=== PATIENT | female | born 1950 | race Caucasian/White ===

== ENCOUNTER 2017-03-11 17:56 | Emergency (ER) | payer MEDICARE ==
--- NOTE | 2017-03-11 19:49 | UC ---
Dental HPI - HPI Summary HPI Summary: 66 yo female with a PMH of ascending aortic aneurysm repair 30 + years ago, CAD with [place], congenital aortic aneurysm at age 27 who presented today with dental pain reporting a broken tooth one year ago that in the last week has developed worsening tooth pain worse the last 24 hours. No noted swelling around tooth or gums. She denies fever or chills. No N/V/D or abdominal pain. no loss of appetite. She also reports 3 days ago she developed dysuria, increased urinary frequency suspected she had a UTI and has taken 3 doses of Cipro (she had left over at home) - her symptoms have now resolved. unknown dosage. - History of Current Complaint Chief Complaint: UCDentalProblem Stated Complaint: TOOTH Time Seen by Provider: 03/11/17 19:37 Hx Obtained From: Patient ?: No Onset/Duration: Gradual Onset, Lasting Weeks, Worse Since - 24 hours Severity: Severe Pain Intensity: 4 Pain Scale Used: 0-10 Numeric - currently Aggravating: Cold, Chewing Alleviating: OTC Meds - Allergies/Home Medications Allergies/Adverse Reactions: Allergies Allergy/AdvReac Type Severity Reaction Status Date / Time Iodinated Diagnostic Agents Allergy Unknown Verified 03/11/17 18:17 Reaction Details Peanut-containing Drug Allergy Unknown Verified 03/11/17 18:17 Products Reaction Details Home Medications: Home Medications Alendronate TAB (NF) [Fosamax TAB (NF)] 70 mg PO DAILY 03/11/17 [History Confirmed 03/11/17] Aspirin [Aspirin 81 MG TAB] 81 mg PO DAILY 03/11/17 [History Confirmed 03/11/17] Calcium Carbonate-Cholecalcife [Calcium 500+D 500-200 mg-Unit] 1 tab PO DAILY [History Confirmed 03/11/17] Latanoprost 0.005%* [Xalatan 0.005%*] 1 drop BOTH EYES DAILY 03/11/17 [History Confirmed 03/11/17] Pantoprazole TAB (NF) [Protonix TAB (NF)] 40 mg PO DAILY 03/11/17 [History Confirmed 03/11/17] Rosuvastatin Calcium 10 mg PO DAILY 03/11/17 [History Confirmed 03/11/17] predniSONE TAB* [Deltasone TAB*] 10.5 mg PO DAILY 03/11/17 [History Confirmed ] PMH/Surg Hx/FS Hx/Imm Hx Previously Healthy: No Endocrine History Of: Denies: Diabetes, Thyroid Disease Cardiovascular History Of: Reports: Cardiac Disorders - Double Bypass Surgery, Myocardial Infarction - with double bypass Denies: Hypertension, Congestive Heart Failure Respiratory History Of: Denies: COPD, Asthma GI/ History Of: Denies: Renal Disease Psychological History Of: Reports: Anxiety Cancer History Of: Denies: Breast Cancer - Surgical History Surgical History: Yes Surgery Procedure, Year, and Place: HYSTERECTOMY;. DOUBLE BYPASS - Family History Known Family History: Positive: Cardiac Disease - [place] (father), Hypertension - Social History Occupation: Retired Lives: With Family - Alcohol Use: None Substance Use Type: None Smoking Status (MU): Never Smoked Tobacco Have You Smoked in the Last Year: No - Immunization History Hx Tetanus, Diphtheria Vaccination: Yes Vaccination Up to Date: Yes Review of Systems Constitutional: Other Skin: Negative Eyes: Negative ENT: Dental Pain Respiratory: Negative Cardiovascular: Negative Gastrointestinal: Negative Genitourinary: Dysuria, Frequency Motor: Negative Neurovascular: Negative Musculoskeletal: Negative Neurological: Negative Psychological: Negative All Other Systems Reviewed And Are Negative: Yes Physical Exam Triage Information Reviewed: Yes Appearance: Well-Appearing, No Pain Distress, Well-Nourished Vital Signs: Initial Vital Signs Temp 98.5 F 03/11/17 18:11 Pulse 89 03/11/17 18:11 Resp 16 03/11/17 18:11 BP 145/88 03/11/17 18:11 Pulse Ox 100 03/11/17 18:11 Vital Signs Reviewed: Yes Eye Exam: Normal ENT: Positive: Pharynx normal, TMs normal Dental: Positive: Dental Fracture @ - tooth racture #29? (lower right) - no noted edema, erythema or drainage - no abscess noted. tender to palpation Neck: Positive: Supple, Nontender, No Lymphadenopathy Respiratory: Positive: Chest non-tender, Lungs clear, Normal breath sounds, No respiratory distress, No accessory muscle use Cardiovascular: Positive: RRR, No Murmur, Pulses Normal, Brisk Capillary Refill Abdomen Description: Positive: Nontender, Soft. Negative: CVA Tenderness (R), CVA Tenderness (L), Distended, Guarding, Peritoneal Signs Bowel Sounds: Positive: Present Musculoskeletal: Positive: Strength Intact, ROM Intact, No Edema Neurological: Positive: Alert Skin Exam: Normal Dental Complaint Course/Dx - Course Course Of Treatment: abx, pain management, oral surgeon referral - Differential Dx/Diagnosis Differential Diagnosis/Dx: Dental Abscess, Dental Caries, Fractured Tooth Provider Diagnoses: 1. Fractured tooth; concern for pulpitis and/or periapical abscess. 2. Possible UTI - negative urinalysis, recent course of Cipro Discharge - Discharge Plan Condition: Stable Disposition: HOME Prescriptions: Cephalexin CAP* [Keflex CAP*] 500 mg PO Q6H #28 cap Chlorhexidine MW 0.12% 473ML* [Peridex Mouth Wash 0.12%] 15 ml MT BID #1 btl HYDROcodone/ACETAMIN 5-325 MG* [Walnut 5-325 TAB*] 1 tab PO Q6H PRN #12 tab MDD 4 tabs PRN Reason: Pain Patient Education Materials: Dental Abscess (ED), Toothache (ED) Referrals: Jim Ritchie MD [Primary Care Provider] - (follow up if needed) Chema Vila MD [Doctor of Dental Medicine] - (please call Sunday to be seen this week. ) Additional Instructions: as discussed you have a Fractured tooth; concern for pulpitis and/or periapical abscess. You are being referred to an oral surgeon. Please start Keflex and pain management as needed. Use the Walnut only for severe pain otherwise continue acetaminophen (tylenol) BUT please be mindful that the Walnut also has added acetaminophen and your max daily dosage is 4000 mg/day. warm saline/salt rinses 3-4 x a day also you have been prescribed chlorhexadine mouth wash. Dr. Vila - [phone] If you have any return of urinary symptoms please see your primary care provider or return here for evaluation
[2017-03-11] MEDS ORDERED: HYDROcodone/ACETAMIN 5-325 MG* 1 TAB PO ONE (20:31)
[2017-03-11 20:50] VITALS: BP 117/74
== END 2017-03-11 20:50 | disposition home or self-care (01) ==
LOC: UCEAST 17:56
DX: K03.81 Cracked tooth (principal); R30.0 Dysuria; R35.0 Frequency of micturition; I25.2 Old myocardial infarction; Z95.1 Presence of aortocoronary bypass graft; F41.9 Anxiety disorder, unspecified
CPT/HCPCS: 81003; 99212; G0463

== ENCOUNTER 2017-06-02 01:28 | Observation (INO) | payer MEDICARE ==
[2017-06-02] MEDS ORDERED: Ondansetron INJ* 2 MG/ML VIAL IV ONE (02:18)
[2017-06-02] MEDS ORDERED: NS 0.9% 1000 ML* 1,000 ML IV ONE ×3 (02:18→08:15)
[2017-06-02 02:42] LABS: Hematocrit 41 % (35-47); Hemoglobin 13.6 g/dl (12.0-16.0); Mean Corpuscular HGB Conc 33 g/dl (31-36); Mean Corpuscular Hemoglobin 31 pg (27-31); Mean Corpuscular Volume 94 fL (80-97); Mean Platelet Volume 11 um3 (7.4-10.4); Red Blood Count 4.38 10^6/ul (4.0-5.4); Red Cell Distribution Width 13 % (10.5-15); White Blood Count 11.3 10^3/ul (3.5-10.8)
[2017-06-02 02:50] LABS: Albumin 3.9 g/dL (3.2-5.2); Calcium 8.8 mg/dL (8.6-10.3); EGFR African American 89.4 (>60); EGFR Non-African American 69.5 (>60); Globulin 2.7 g/dL (2-4); Potassium 3.4 mmol/L (3.5-5.0); Total Bilirubin 0.8 mg/dL (0.2-1.0); Total Protein 6.6 g/dL (6.4-8.9)
[2017-06-02] MEDS ORDERED: Metoclopramide IV* 5 MG/ML 2 ML VIAL IV ONE (04:18)
[2017-06-02] MEDS ORDERED: Pantoprazole IV* 40 MG IV ONE (06:23)
--- NOTE | 2017-06-02 07:11 | ED ---
Pattie Messer SooYoung, scribed for Hai Mayfield on 06/02/17 at 0208 . 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 Per family, the SOB may be due to pt's anxiety. Associated sx: n/v/d, mild abd pain described as cramping. Denies CP, fever. She ate chicken and pasta salad earlier today. PMHx: [place] - 39 years ago, CABG. Sees Dr. Clark. - History of Current Complaint Chief Complaint: EDShortnessOfBreath Time Seen by Provider: 06/02/17 01:44 Hx Obtained From: Patient, Family/Alarm Service Technician Onset/Duration: Gradual Onset, Lasting Hours, Still Present Timing: Constant Current Severity: Moderate - Allergy/Home Medications Allergies/Adverse Reactions: Allergies Allergy/AdvReac Type Severity Reaction Status Date / Time Peanut-containing Drug Allergy Unknown Verified 06/02/17 01:38 Products Reaction Details Iodinated Diagnostic Agents AdvReac Mild Unknown Verified 06/02/17 02:38 Reaction Details PMH/Surg Hx/FS Hx/Imm Hx Previously Healthy: No Endocrine/Hematology History: Denies: Hx Diabetes, Hx Thyroid Disease Cardiovascular History: Reports: Hx Coronary Artery Disease, Hx Myocardial Infarction - with double bypass Denies: Hx Congestive Heart Failure, Hx Hypertension Respiratory History: Denies: Hx Asthma, Hx Chronic Obstructive Pulmonary Disease (COPD) History: Denies: Hx Dialysis, Hx Renal Disease Musculoskeletal History: Denies: Hx Osteoporosis Psychiatric History: Reports: Hx Anxiety - Cancer History Hx Chemotherapy: No Hx Radiation Therapy: No - Surgical History Surgery Procedure, Year, and Place: HYSTERECTOMY;. DOUBLE BYPASS Infectious Disease History: No Infectious Disease History: Reports: Hx Shingles Denies: Hx Clostridium Difficile, Hx Hepatitis, Hx Human Immunodeficiency Virus (HIV), Hx of Known/Suspected MRSA, Hx Tuberculosis, Traveled Outside the [place] in Last 30 Days - Family History Known Family History: Positive: Cardiac Disease - [place] (father), Hypertension - Social History Occupation: Retired Lives: With Family Alcohol Use: None Hx Substance Use: No Substance Use Type: Reports: None Hx Tobacco Use: No Smoking Status (MU): Never Smoked Tobacco Have You Smoked in the Last Year: No Review of Systems Negative: Fever Negative: Chest Pain Positive: Shortness Of Breath Positive: Abdominal Pain, Vomiting, Nausea All Other Systems Reviewed And Are Negative: Yes Physical Exam Triage Information Reviewed: Yes Vital Signs On Initial Exam: Initial Vitals Temp Pulse Resp BP Pulse Ox 97.9 F 108 18 123/73 100 06/02/17 01:35 06/02/17 01:35 06/02/17 01:35 06/02/17 01:35 06/02/17 01:35 Vital Signs Reviewed: Yes Appearance: Positive: Well-Appearing, No Pain Distress Skin: Positive: Warm, Skin Color Reflects Adequate Perfusion, Dry Head/Face: Positive: Normal Head/Face Inspection Eyes: Positive: EOMI, MANDEEP ENT: Positive: Normal ENT inspection Neck: Positive: Supple, Nontender Respiratory/Lung Sounds: Positive: Clear to Auscultation, Breath Sounds Present Cardiovascular: Positive: RRR, Pulses are Symmetrical in both Upper and Lower Extremities Abdomen Description: Positive: Soft, Other: - tenderness to LLQ Bowel Sounds: Positive: Present Musculoskeletal: Positive: Normal, Strength/ROM Intact Neurological: Positive: Normal, Sensory/Motor Intact, Alert, Oriented to Person Place, Time Diagnostics - Vital Signs Vital Signs Temp Pulse Resp BP Pulse Ox 06/02/17 01:35 97.9 F 108 18 123/73 100 - Laboratory Result Diagrams: 06/02/17 02:00 06/02/17 02:00 Lab Statement: Any lab studies that have been ordered have been reviewed, and results considered in the medical decision making process. - Radiology CXR Radiology Interpretation Completed By: Radiologist - image pending, see [facility] for final report - CT ABD/PEL CT CT Interpretation: Positive (See Comments) - IMPRESSION: Diverticulosis with diverticulitis. 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 Per family, the SOB may be due to pt's anxiety. Associated sx: n/v/d, mild abd pain described as cramping. Denies CP, fever. She ate chicken and pasta salad earlier today. PMHx: [place] - 39 years ago, CABG. Sees Dr. Clark. Pt given fluids , Zofran in ED. Bloodwork and lab results are without significant abnormality except lactic acid is 2.2. EKG is sinus tachy with ST changes. ABD/PEL CT shows diverticulosis with diverticulitis. CXR pending, see [facility] for final report. Will SO to Dr. Cao at shift change, pending hospitalist consult. - Diagnoses Provider Diagnoses: Gastroenteritis, Dehydration Discharge - Discharge Plan Condition: Stable Disposition: OTHER Discharge Disposition Comment: SO to Dr. Cao at shift change, pending hospitalist consult Referrals: Jim Ritchie MD [Primary Care Provider] - The documentation as recorded by the Pattie berry SooYoung accurately reflects the service I personally performed and the decisions made by , Hai Mayfield.
--- NOTE | 2017-06-02 07:50 | RAD ---
HISTORY: Abdominal pain COMPARISONS: April 23, 2008 VIEWS:1: Single frontal portable view of the chest at 2:50 AM FINDINGS: LINES AND TUBES: None. CARDIOMEDIASTINAL SILHOUETTE: The cardiomediastinal silhouette is normal for portable technique. PLEURA: The costophrenic angles are sharp. No pleural abnormalities are noted. LUNG PARENCHYMA: The lungs are clear. ABDOMEN: The upper abdomen is clear. There is no subphrenic gas. BONES AND SOFT TISSUES: The patient is status post median sternotomy. Surgical clips are noted overlying the mediastinum. IMPRESSION: NO ACTIVE CARDIOPULMONARY DISEASE.
--- NOTE | 2017-06-02 07:53 | RAD ---
CLINICAL HISTORY: Diverticulitis COMPARISON: None TECHNIQUE: Multiple contiguous axial CT scans were obtained of the abdomen and pelvis, without intravenous contrast enhancement. Coronal and sagittal multiplanar reformations are submitted for review. Oral contrast was not administered. FINDINGS: The study is limited by the lack of intravenous contrast. This limits evaluation of the solid organs and vasculature. LUNG BASES: The lung bases are clear. LIVER: The liver is normal in shape, size, contour, and attenuation. BILE DUCTS: There is no intrahepatic or extrahepatic biliary dilatation. GALLBLADDER: The gallbladder is normal, without pericholecystic inflammatory change. PANCREAS: The pancreas is normal, without mass or ductal dilatation. SPLEEN: Normal in size and appearance. UPPER GI TRACT: Evaluation of the gastrointestinal tract is limited by incomplete gastric distention. The upper GI tract is unremarkable. SMALL BOWEL AND MESENTERY: The small bowel is normal in contour, course, and caliber. There is no obstruction or dilatation. COLON: The colon is normal in contour, course, caliber. There is no pericolonic inflammatory change. There is mild diverticulosis of the distal colon. ADRENALS: Normal bilaterally. KIDNEYS: Renal cysts are noted. There is no appreciable hydronephrosis or nephrolithiasis. BLADDER: The bladder is collapsed and is not well evaluated. PELVIC ORGANS: The uterus and adnexa are grossly normal for technique. AORTA: There is minimal atherosclerosis of the aorta, without aneurysmal dilatation. IVC: Unremarkable LYMPH NODES: There is no lymphadenopathy by size criteria. ABDOMINAL WALL: There is no evidence for abdominal wall hernia. BONES AND SOFT TISSUES: There are mild diffuse degenerative changes. OTHER: None IMPRESSION: MILD DIVERTICULOSIS OF THE DISTAL COLON WITHOUT PERICOLONIC INFLAMMATORY CHANGE TO SUGGEST ACUTE DIVERTICULITIS.
[2017-06-02] MEDS ORDERED: PROCHLORPERAZINE INJ 5 MG/ML 2 ML VIAL IV PRN (08:15)
[2017-06-02] MEDS ORDERED: Metoclopramide IV* 5 MG/ML 2 ML VIAL IV PRN (08:15)
[2017-06-02] MEDS ORDERED: PROCHLORPERAZINE INJ 5 MG/ML 2 ML VIAL ONE (08:19)
[2017-06-02] MEDS ORDERED: clonazePAM TAB(*) 0.5 MG PO PRN (08:33)
[2017-06-02] MEDS ORDERED: KCL 20 MEQ/100 ML IVPREMIX* 20 MEQ/100 ML BAG IV ONE (08:35)
[2017-06-02] MEDS ORDERED: Nadolol (NF) 20 MG TAB PO SCH (09:00)
[2017-06-02] MEDS ORDERED: Losartan TAB* 25 MG PO SCH (09:00)
--- NOTE | 2017-06-02 10:54 | HP ---
CC: Dr. Ritchie; Dr. Clark * HISTORY AND PHYSICAL: DATE OF ADMISSION: 06/02/17 PRIMARY CARE PROVIDER: Dr. Ritchie. BASTING CLEANER: Dr. Clark. CHIEF COMPLAINT: Nausea and vomiting. HISTORY OF PRESENT ILLNESS: Ms. Luna is a 67-year-old female who has a history of giant cell arteritis, on prednisone; hyperlipidemia; hypertension; coronary artery disease; and cerebrovascular disease, who presents to the emergency room with complaints of nausea and vomiting. The patient states that all week long, the patient herself and her were having diarrhea. She has specifically noted this after eating. She states last evening she made a pasta salad that had peppers in it. She states ordinarily when she eats peppers , she gets indigestion. This time, she developed severe nausea and vomiting. She states she vomited all night long and therefore could not sleep. She presents to the emergency room for evaluation of this. She continues to have severe nausea. She states she has filled 3 of the blue bags in the emergency room with vomit since being here. Overall, she just feels very unwell. She denies any abdominal pain or fevers. She did state last evening when she showed up she was shivering pretty significantly. PAST MEDICAL HISTORY: 1. Coronary artery disease, status post 2-vessel bypass at the age of 27. 2. Giant cell arteritis. 3. Hyperlipidemia. 4. Hypertension. 5. Peripheral vascular disease. 6. Cerebrovascular disease. PAST SURGICAL HISTORY: 1. Partial hysterectomy. 2. Tubal ligation. 3. Ascending aortic aneurysm repair with CABG at the age of 27. 4. Tonsillectomy. MEDICATIONS: 1. Prednisone 9 mg p.o. daily. 2. Crestor 10 mg p.o. Sunday, Sunday, Sunday. 3. Nadolol 20 mg p.o. daily. 4. Losartan 25 mg p.o. daily. 5. Xalatan 1 drop to both eyes q.h.s. 6. Folic acid 1 mg p.o. daily. 7. Clonazepam 0.5 mg p.o. daily p.r.n. anxiety. 8. Celexa 20 mg p.o. daily. 9. Calcium plus D 1 tab p.o. daily. 10. Aspirin 81 mg p.o. daily. ALLERGIES: PEANUTS and IODINE CONTRAST. FAMILY HISTORY: Mom is living. She is 92. Dad in his 50s of metastatic cancer that was felt to originate in the GI tract. SOCIAL HISTORY: The patient is a former smoker, but not actively smoking. She does not drink alcohol. 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 She is . She has 3 children. Her is her healthcare proxy. REVIEW OF SYSTEMS: The patient denies any fevers. She admits to shivering last evening. Her appetite has been poor since last evening, but prior to that had been fine. No chest pain. No shortness of breath. She admits to nausea, vomiting, and diarrhea as above. No abdominal pain. No hematochezia. No dysuria. No focal weakness. No sudden changes in vision. No dysphagia. No joint pains or muscle pains out of the ordinary. No rashes. No current anxiety or depression. PHYSICAL EXAMINATION GENERAL: The patient is a well-developed, middle-aged female, lying on the stretcher, appearing unwell but in no acute distress. VITAL SIGNS: Blood pressure 100/51, pulse 103, respirations 19, temp 97.9, and O2 sat 91% on room air. HEENT: Pupils are equal. They are round. They react to light. Extraocular muscles are intact. Oropharynx is clear. Oral mucosa is moist. There is no submandibular, cervical, or supraclavicular adenopathy. Thyroid is not enlarged. No thyroid nodules noted. PULMONARY: Lungs are clear to auscultation with very few fine right basilar crackles. CARDIAC: Normal S1, S2. Heart rate is tachycardic, but regular. There is no lower extremity edema. ABDOMEN: Bowel sounds present. Abdomen is soft, nontender, nondistended. MUSCULOSKELETAL: There is no cyanosis or clubbing of the digits. There is full active range of motion of all 4 extremities. SKIN: Warm and dry. There are no rashes. NEURO: Cranial nerves II through XII are grossly intact. Sensation is intact to light touch throughout. Strength is 5/5 and symmetric in both upper and lower extremities bilaterally. PSYCH: The patient is alert. She is oriented x3. Affect appears appropriate. LABORATORY DATA: WBC 11.3, hemoglobin 13.6, hematocrit 41, platelets 193. INR 0.89. Sodium 138, potassium 3.4, chloride 103, CO2 26, BUN 18, creatinine 0.82, glucose 115, lactic acid 2.8, calcium 8.8. Bilirubin 0.8, AST 15, ALT 14 , alk phos 40. Troponin 0. Albumin 3.9. Lipase 25. Chest x-ray, no active cardiopulmonary disease. Abdomen and pelvis CT, mild diverticulosis of the distal colon without pericolonic inflammatory change to suggest acute diverticulitis. ASSESSMENT AND PLAN: Ms. Luna is a 67-year-old female with a complicated past medical history significant for coronary artery disease, ascending aortic aneurysm repair at the age of 27, giant cell arteritis, hyperlipidemia, and hypertension, who presents to the emergency room with complaints of nausea and vomiting. 1. Probable viral gastroenteritis. At this point, the patient and her have both been ill with diarrheal illness over the last week. The patient now started vomiting. I suspect this represents a viral gastroenteritis. Her while blood cell count is mildly elevated at this point. She will receive aggressive IV fluid hydration as well as numerous antiemetics to try to control her nausea. She will be on a clear liquid diet. I am going to hold off on any antibiotics at this point, as there are no clear signs that this is bacterial in nature. Her lactic acid is mildly elevated at 2.8. A followup lactic acid will be obtained now. If still elevated, will be followed to let normalize this. The patient is also tachycardic which I suspect goes along with her being volume depleted. 2. Hypertension. The patient's blood pressure is on the soft side at this point. I will continue her home losartan and nadolol; however, we will put hold parameters. 3. Coronary artery disease. The patient will be maintained on her usual dose of aspirin and statin. 4. Giant cell arteritis. The patient will continue on 9 mg of prednisone daily. She has been on prednisone long-term, and if her blood pressure fails to improve, we may need to consider stress dose steroids. 5. DVT prophylaxis: According to the Adult Thrombosis Prophylaxis Risk Factor Assessment Guide, the patient has a total risk factor score of 2, making her moderate risk. She will be placed on heparin 5000 units subcutaneous q.12 hours. 6. Code status is full. TIME SPENT: 60 minutes was spent admitting this patient. [id number]/[facility] #: [id number] [place]
[2017-06-02] MEDS: NS 0.9% 1000 ML* 1,000 ML IV SCH ×2 (11:00→20:56)
[2017-06-02] MEDS: Heparin VIAL(*) 5000 UNITS/ML VIAL (FIVE THOUSAND) SUBCUT SCH ×2 (11:20→21:32)
[2017-06-02] MEDS ORDERED: LORazepam INJ* 2 MG/ML 1 ML VIAL IV PUSH ONE (11:54)
[2017-06-02] MEDS ORDERED: LORazepam INJ* 2 MG/ML 1 ML VIAL IV PUSH PRN (14:21)
[2017-06-02] MEDS ORDERED: Morphine INJ* 2 MG/ML 1 ML SYRINGE IV PRN (14:21)
[2017-06-02] MEDS: Citalopram TAB* 20 MG PO SCH (14:22)
[2017-06-02] MEDS: Losartan TAB* 25 MG PO SCH (14:22)
[2017-06-02] MEDS: Aspirin EC Low Dose* 81 MG TAB.EC PO SCH (14:22)
[2017-06-02] MEDS: Calcium/Vitamin D TAB 250/125* TAB PO SCH (14:22)
[2017-06-02] MEDS: Folic Acid TAB* 1 MG PO SCH (14:22)
[2017-06-02] MEDS: Nadolol TAB* 40 MG PO SCH (14:32)
[2017-06-02 14:34] LABS: Urine Bacteria 1+ (Absent); Urine Bilirubin Negative (Negative); Urine Glucose Negative (Negative); Urine Nitrite Negative (Negative)
[2017-06-02] MEDS: predniSONE TAB* 1 MG PO SCH (15:18)
[2017-06-02] MEDS: predniSONE TAB* 5 MG PO SCH (15:18)
[2017-06-02] MEDS: Acetaminophen TAB* 325 MG PO PRN (19:57)
[2017-06-02] MEDS: Ondansetron INJ* 2 MG/ML VIAL IV PRN (20:05)
[2017-06-02] MEDS ORDERED: Latanoprost 0.005%* 2.5 ml BTL BOTH EYES SCH (21:00)
[2017-06-03] MEDS: Acetaminophen TAB* 325 MG PO PRN ×2 (00:25→07:48)
[2017-06-03] MEDS: NS 0.9% 1000 ML* 1,000 ML IV SCH (04:55)
[2017-06-03 06:01] LABS: Hematocrit 37 % (35-47); Hemoglobin 12.1 g/dl (12.0-16.0); Mean Corpuscular HGB Conc 33 g/dl (31-36); Mean Corpuscular Hemoglobin 31 pg (27-31); Mean Corpuscular Volume 95 fL (80-97); Mean Platelet Volume 10 um3 (7.4-10.4); Red Blood Count 3.85 10^6/ul (4.0-5.4); Red Cell Distribution Width 13 % (10.5-15); White Blood Count 4.3 10^3/ul (3.5-10.8)
[2017-06-03 06:14] LABS: Calcium 7.7 mg/dL (8.6-10.3); EGFR African American 144.8 (>60); EGFR Non-African American 112.6 (>60); Potassium 3.3 mmol/L (3.5-5.0)
[2017-06-03] MEDS: Ondansetron INJ* 2 MG/ML VIAL IV PRN (07:44)
[2017-06-03] MEDS: Heparin VIAL(*) 5000 UNITS/ML VIAL (FIVE THOUSAND) SUBCUT SCH (07:46)
[2017-06-03] MEDS: Aspirin EC Low Dose* 81 MG TAB.EC PO SCH (07:48)
[2017-06-03] MEDS: predniSONE TAB* 1 MG PO SCH (07:48)
[2017-06-03] MEDS: Losartan TAB* 25 MG PO SCH (07:48)
[2017-06-03] MEDS: Nadolol TAB* 40 MG PO SCH (07:48)
[2017-06-03] MEDS: Calcium/Vitamin D TAB 250/125* TAB PO SCH (07:48)
[2017-06-03] MEDS: predniSONE TAB* 5 MG PO SCH (07:48)
[2017-06-03] MEDS: Citalopram TAB* 20 MG PO SCH (07:48)
[2017-06-03] MEDS: Folic Acid TAB* 1 MG PO SCH (07:48)
[2017-06-03 11:36] VITALS: BP 113/49
--- NOTE | 2017-06-03 11:49 | PN ---
Subjective Date of Service: 06/03/17 Interval History: Ms. Luna states that she is feeling much better today. Her nausea and vomiting have resolved and she is tolerating oral intake well. She has some miminal diarrhea. Objective Active Medications: Acetaminophen (Tylenol Tab*) 650 mg PO Q4H PRN Aspirin (Aspirin Ec Low Dose*) 81 mg PO DAILY [facility] Atorvastatin Calcium (Lipitor*) 20 mg PO MOWEFR [facility] Calcium/Vitamin D (Oscal D Tab 250/125*) 1 tab PO DAILY [facility] Citalopram Hydrobromide (Celexa Tab*) 20 mg PO DAILY [facility] Clonazepam (Klonopin Tab(*)) 0.5 mg PO DAILY PRN Folic Acid (Folvite Tab*) 1 mg PO DAILY [facility] Heparin Sodium (Porcine) (Heparin Vial(*)) 5,000 units SUBCUT Q12HR [facility] Sodium Chloride (Ns 0.9% 1000 Ml*) 1,000 mls @ 125 mls/hr IV PER RATE [facility] Latanoprost (Xalatan 0.005%*) 1 drop BOTH EYES BEDTIME [facility] Lorazepam (Ativan Inj*) 0.5 mg IV PUSH Q6H PRN Losartan Potassium (Cozaar Tab*) 25 mg PO DAILY [facility] Metoclopramide HCl (Reglan Iv*) 10 mg IV Q6H PRN Morphine Sulfate (Morphine Inj (Syringe)*) 2 mg IV Q4H PRN Nadolol (Corgard Tab*) 20 mg PO DAILY [facility] Ondansetron HCl (Zofran Inj*) 4 mg IV Q6H PRN Prednisone (Deltasone Tab*) 4 mg PO DAILY [facility] Prednisone (Deltasone Tab*) 5 mg PO DAILY [facility] Prochlorperazine Edisylate (Compazine Inj*) 10 mg IV Q6H PRN Vital Signs 06/02/17 06/02/17 06/02/17 12:24 13:24 15:27 Temperature 97.9 F Pulse Rate 108 Respiratory 28 28 16 Rate Blood Pressure 115/52 (mmHg) O2 Sat by Pulse Oximetry 06/03/17 06/03/17 06/03/17 00:17 00:25 03:49 Temperature 98.0 F 98.0 F Pulse Rate 87 83 Respiratory 16 16 Rate Blood Pressure 97/46 106/62 101/57 (mmHg) O2 Sat by Pulse 96 96 Oximetry 06/03/17 06/03/17 06/03/17 07:37 08:00 11:17 Temperature 98.0 F 97.8 F Pulse Rate 86 82 Respiratory 16 16 20 Rate Blood Pressure 112/77 113/49 (mmHg) O2 Sat by Pulse 96 98 Oximetry Oxygen Devices in Use Now: None Appearance: Female lying in bed in NAD Eyes: No Scleral Icterus Ears/Nose/Mouth/Throat: Mucous Membranes Moist Neck: NL Appearance and Movements; NL JVP Respiratory: Symmetrical Chest Expansion and Respiratory Effort, Clear to Auscultation Cardiovascular: NL Sounds; No Murmurs; No JVD, No Edema Abdominal: NL Sounds; No Tenderness; No Distention Lymphatic: No Cervical Adenopathy Extremities: No Edema Skin: No Rash or Ulcers Neurological: Alert and Oriented x 3, NL Muscle Strength and Tone Nutrition: Taking PO's Result Diagrams: 06/03/17 05:52 06/03/17 05:52 Microbiology and Other Data: Microbiology 06/02/17 14:20 Stool Gross Appearance - Final Stool C. difficile DNA Amplification - Final 027 Presumptive NEGATIVE Toxigenic C.diff NEGATIVE Assess/Plan/Problems-Billing Assessment: Ms. Luna is a 67 yo female with a PMH of CAD s/p CABG at age 27, giant cell arteritis who was admitted on 06/02/17 with acute viral gastroenteritis. - Patient Problems (1) Gastroenteritis Comment: - Resolved. - Afebrile, no leukocytosis. - Suspect viral process. (2) Hypertension Comment: - SBP well controlled. - Continue losartan and nadolol. (3) Hyperlipemia Comment: - Continue atorvastatin. (4) Depression Comment: - Continue celexa. (5) Giant cell arteritis Comment: - Continue prednisone. (6) DVT prophylaxis Comment: - Heparin SQ. (7) Full code status Status and Disposition: OBV. Discharge to home.
--- NOTE | 2017-06-04 02:37 | DS ---
CC: Dr. Ritchie * DISCHARGE SUMMARY: DATE OF ADMISSION: 06/02/17 DATE OF DISCHARGE: 06/03/17 PRIMARY CARE PHYSICIAN: Dr. Ritchie. ATTENDING PHYSICIAN: Cuate Goyal MD *(dictation provided by Derian Martinez NP ) PRIMARY DIAGNOSIS: Viral gastroenteritis. SECONDARY DIAGNOSES: 1. History of ascending aortic aneurysm with repair of that with also requiring a CABG at age 27. 2. Giant cell arteritis, currently on prednisone therapy. 3. Hyperlipidemia. 4. Hypertension. 5. Peripheral vascular disease. PAST SURGICAL HISTORY: 1. Partial hysterectomy. 2. Tubal ligation. 3. Ascending aortic aneurysm repair with CABG at the age of 27. 4. Tonsillectomy. MEDICATIONS: At the time of discharge are, no medication changes: 1. Prednisone 9 mg p.o. daily. 2. Crestor 10 mg p.o. Sunday, Sunday, Sunday. 3. Nadolol 20 mg p.o. daily. 4. Losartan 25 mg p.o. daily. 5. Xalatan 1 drop to both eyes q.h.s. 6. Folic acid 1 mg p.o. daily. 7. Clonazepam 0.5 mg p.o. daily p.r.n. anxiety. 8. Celexa 20 mg p.o. daily. 9. Calcium plus D 1 tab p.o. daily. 10. Aspirin 81 mg p.o. daily. HOSPITAL COURSE: Ms. Luna is a 67-year-old female with a past medical history of abdominal aortic aneurysm with repair as well as CABG at age 27 and recent diagnosis in the past year of giant cell arteritis, now on prednisone therapy, who presented to the hospital on 06/02/17 with concern for nausea, vomiting, and diarrhea. Please see dictated H and P from Dr. Shelton for complete details. In brief, the patient had essentially normal labs except for a mildly elevated lactic acid at 2.8. She had a CT of the abdomen and pelvis, which showed diverticulosis only without any evidence of inflammation. She was afebrile. She was not tachycardic. Blood pressure was stable. Ms. Luna was observed in the hospital overnight. This morning, she is feeling much better. She has had no nausea. No vomiting. She has had a small amount of diarrhea, but feels that her symptoms are essentially resolved. She has been tolerating oral intake well. Ms. Luna is medically stable for discharge to home to followup with Dr. Ritchie. DISPOSITION: To home. DIET: Low salt. ACTIVITY: As tolerated. FOLLOWUP PLANS: Please follow up with Dr. Ritchie per routine in the next 1 to 2 weeks after this hospitalization. TIME SPENT: Approximately 60 minutes were spent in the discharge of this patient, more than half the time spent with the patient at the bedside reviewing the events leading up to this hospitalization, performing the physical examination, and reviewing the plan of care. DERIAN MARTINEZ NP [id number]/CPS #: [id number] [place]
[2017-06-04] MEDS ORDERED: Atorvastatin* 20 MG TAB PO SCH (08:33)
== END 2017-06-03 15:00 | disposition home or self-care (01) ==
LOC: ED 01:28 → MED 08:15
PROVIDERS: ADMIT Hospitalist; ATTEND Internal Medicine
DX: A08.4 Viral intestinal infection, unspecified (principal); M31.6 Other giant cell arteritis; I10 Essential (primary) hypertension; E78.5 Hyperlipidemia, unspecified; I73.9 Peripheral vascular disease, unspecified; Z79.82 Long term (current) use of aspirin; Z91.041 Radiographic dye allergy status; Z91.010 Allergy to peanuts; I25.10 Atherosclerotic heart disease of native coronary artery without angina pectoris; Z95.1 Presence of aortocoronary bypass graft
CPT/HCPCS: 36415; 71010; 74176; 80048; 80053; 81003; 81015; 83605; 83690; 84484; 85025; 85027; 85610; 85730; 87077; 87086; 87186; 87493; 93005; 96374; 96375; 99284; A9270-GY; G0378; J0780; J1644; J2060; J2405; J2765; J3480; J7512

== ENCOUNTER 2019-04-17 22:01 | Observation (INO) | payer MEDICARE ==
[2019-04-17 22:31] LABS: ABS Basophils 0.1 10^3/ul (0-0.2); ABS Eosinophils 0.1 10^3/ul (0-0.6); ABS Lymphocytes 1.7 10^3/ul (1.0-4.8); ABS Neutrophils 8.9 10^3/ul (1.5-7.7); Eosinophil % 1.1 %; Hematocrit 40 % (35-47); Hemoglobin 13.3 g/dL (12.0-16.0); Lymphocyte % 14.5 %; Mean Corpuscular HGB Conc 34 g/dL (31-36); Mean Corpuscular Hemoglobin 32 pg (27-31); Mean Corpuscular Volume 94 fL (80-97); Mean Platelet Volume 10.5 fL (7.4-10.4); Platelet Count 241 10^3/uL (150-450); Red Blood Count 4.23 10^6 /uL (3.70-4.87); Red Cell Distribution Width 13 % (10-15); White Blood Count 11.8 10^3/uL (3.5-10.8)
[2019-04-17 22:36] LABS: INR 0.98 (0.82-1.09)
[2019-04-17 22:44] LABS: Albumin 4.1 g/dL (3.2-5.2); Albumin/Globulin Ratio 1.4 (1-3); BUN/Creatinine Ratio 17.9 (8-20); Calcium 9.4 mg/dL (8.6-10.3); EGFR African American 105.6 (>60); EGFR Non-African American 87.3 (>60); Globulin 2.9 g/dL (2-4); Potassium 3.8 mmol/L (3.5-5.0); Total Bilirubin 0.4 mg/dL (0.2-1.0)
--- NOTE | 2019-04-17 23:19 | ED ---
Palpitations / Dysrhythmia - HPI Summary HPI Summary: A 69 y/o female presents to [facility] with a chief complaint of an elevated heart rate since 19:00 04/17/19. The patient also c/o SOB and nausea. She denies any swelling or pain in legs, fevers, chills or abdominal pain. The patient states that she had a heart attack at 27y/o and had a double bypass surgery. She called Dr. Piper today and he told her to get an EKG. - History of Current Complaint Chief Complaint: EDDysrhythmPalp Time Seen by Provider: 04/17/19 23:04 Hx Obtained From: Patient Onset/Duration: Sudden Onset, Lasting Hours, Still Present Timing: Constant Severity Initially: Mild Severity Currently: None Character: Fast Aggravating: Nothing Alleviating: Nothing Associated Signs & Symptoms: Shortness of Breath, Nausea - Allergy/Home Medications Allergies/Adverse Reactions: Allergies Allergy/AdvReac Type Severity Reaction Status Date / Time Iodinated Contrast- Oral and Allergy Unknown Verified 04/17/19 22:16 IV Dye Reaction Details peanut Allergy Unknown Verified 04/17/19 22:15 Reaction Details PMH/Surg Hx/FS Hx/Imm Hx Endocrine/Hematology History: Reports: Other Endocrine/Hematological Disorders - HLD Denies: Hx Diabetes, Hx Thyroid Disease Cardiovascular History: Reports: Hx Coronary Artery Disease, Hx Hypertension, Hx Myocardial Infarction - with double bypass, Hx Peripheral Vascular Disease, Other Cardiovascular Problems/Disorders - CAD Denies: Hx Congestive Heart Failure, Hx Pacemaker/ICD Respiratory History: Denies: Hx Asthma, Hx Chronic Obstructive Pulmonary Disease (COPD) History: Denies: Hx Dialysis, Hx Renal Disease Musculoskeletal History: Denies: Hx Osteoporosis Sensory History: Reports: Hx Contacts or Glasses Denies: Hx Hearing Aid Opthamlomology History: Reports: Hx Contacts or Glasses Psychiatric History: Reports: Hx Anxiety Denies: Hx Panic Disorder - Cancer History Hx Chemotherapy: No Hx Radiation Therapy: No - Surgical History Surgery Procedure, Year, and Place: HYSTERECTOMY;. DOUBLE BYPASS-OK PER DR ARAMBULA. TONSILS Infectious Disease History: No Infectious Disease History: Reports: Hx Shingles Denies: Hx Clostridium Difficile, Hx Hepatitis, Hx Human Immunodeficiency Virus (HIV), Hx of Known/Suspected MRSA, Hx Tuberculosis, Traveled Outside the [place] in Last 30 Days - Family History Known Family History: Positive: Cardiac Disease - [place] (father), Hypertension - Social History Alcohol Use: None Hx Substance Use: No Substance Use Type: Reports: None Hx Tobacco Use: No Smoking Status (MU): Never Smoked Tobacco Have You Smoked in the Last Year: No Review of Systems Negative: Fever, Chills Positive: Shortness Of Breath Positive: Nausea. Negative: Vomiting Negative: Myalgia, Edema All Other Systems Reviewed And Are Negative: Yes Physical Exam - Summary Physical Exam Summary: Appearance: anxious appearing female in no apparent distress, vital signs show that the patient is tachycardic with frequent PVCs on monitor Skin: Warm, dry, no obvious rash Eyes: sclera anicteric, no conjunctival pallor ENT: mucous membranes moist, pharynx appears normal Neck: Supple, nontender Respiratory: Clear to auscultation, no signs of respiratory distress Cardiovascular: Normal S1, S2. No murmurs. Normal distal pulses in tibial and radial bilaterally. Abdomen: Soft, nontender, normal active bowel sounds present Musculoskeletal: Normal, Strength/ROM Intact, no leg swelling Neurological: A&Ox3, awake and alert, mentation is normal, speech is fluent and appropriate Psychiatric: affect is normal, does not appear anxious or depressed Triage Information Reviewed: Yes Vital Signs On Initial Exam: Initial Vitals Temp Pulse Resp BP Pulse Ox 98.3 F 105 20 148/86 97 04/17/19 22:09 04/17/19 22:09 04/17/19 22:09 04/17/19 22:09 04/17/19 22:09 Vital Signs Reviewed: Yes Diagnostics - Vital Signs Vital Signs Temp Pulse Resp BP Pulse Ox 04/17/19 22:09 98.3 F 105 20 148/86 97 - Laboratory Lab Results: Lab Results 04/17/19 04/17/19 04/17/19 Range/Units 22:20 22:20 22:20 WBC 11.8 H (3.5-10.8) 10^3/uL RBC 4.23 (3.70-4.87) 10^6 /uL Hgb 13.3 (12.0-16.0) g/dL Hct 40 (35-47) % MCV 94 (80-97) fL MCH 32 H (27-31) pg MCHC 34 (31-36) g/dL RDW 13 (10-15) % Plt Count 241 (150-450) 10^3/uL MPV 10.5 H (7.4-10.4) fL Neut % (Auto) 75.4 % Lymph % (Auto) 14.5 % [place] % (Auto) 8.1 % Eos % (Auto) 1.1 % Baso % (Auto) 0.9 % Absolute Neuts (auto) 8.9 H (1.5-7.7) 10^3/ul Absolute Lymphs (auto) 1.7 (1.0-4.8) 10^3/ul Absolute Monos (auto) 1.0 H (0-0.8) 10^3/ul Absolute Eos (auto) 0.1 (0-0.6) 10^3/ul Absolute Basos (auto) 0.1 (0-0.2) 10^3/ul Absolute Nucleated RBC 0.0 10^3/ul Nucleated RBC % 0.0 INR (Anticoag Therapy) 0.98 (0.82-1.09) Sodium 137 (135-145) mmol/L Potassium 3.8 (3.5-5.0) mmol/L Chloride 104 (101-111) mmol/L Carbon Dioxide 25 (22-32) mmol/L Anion Gap 8 (2-11) mmol/L BUN 12 (6-24) mg/dL Creatinine 0.67 (0.51-0.95) mg/dL Est GFR ( Amer) 105.6 (>60) Est GFR (Non-Af Amer) 87.3 (>60) BUN/Creatinine Ratio 17.9 (8-20) Glucose 136 H (70-100) mg/dL Calcium 9.4 (8.6-10.3) mg/dL Total Bilirubin 0.40 (0.2-1.0) mg/dL AST 25 (13-39) U/L ALT 21 (7-52) U/L Alkaline Phosphatase 76 (34-104) U/L Troponin I 0.00 (<0.04) ng/mL Total Protein 7.0 (6.4-8.9) g/dL Albumin 4.1 (3.2-5.2) g/dL Globulin 2.9 (2-4) g/dL Albumin/Globulin Ratio 1.4 (1-3) Result Diagrams: 04/19/19 05:46 04/19/19 05:46 Lab Statement: Any lab studies that have been ordered have been reviewed, and results considered in the medical decision making process. - Radiology CXR Radiology Interpretation Completed By: ED Physician Summary of Radiographic Findings: No acute process. Pending official imaging report. - EKG 22:06 Cardiac Rate: Tachycardia - 111bpm EKG Rhythm: Sinus Tachycardia Summary of EKG Findings: EKG at 22:06 showed Sinus tachycardia 111bpm, paired ventricular premature complexes. Course/Dx - Course Course Of Treatment: A 69 y/o female presents to [facility] with a chief complaint of an elevated heart rate since 19:00 04/17/19. The patient also c/o SOB and nausea. The physical exam revealed that the patient is an anxious appearing female in no apparent distress, vital signs show that the patient is tachycardic with frequent PVCs on monitor, no leg swelling. EKG at 22:06 showed Sinus tachycardia 111bpm, paired ventricular premature complexes. CXR showed no acute process. In the ED course the patient was given Zofran IV and Compazine IV. Bloodwork and chemistries obtained. Second troponin at 00:59 was initially reported as 0.13, but the lab reports that there was an error and that it was really 0.01. Discussed case with Dr. Piper, irrigation worker, who recommended admission and starting her on Heparin and beta blockers to get her HR down. Discussed case with Dr. West, hospitalist, who accepted the patient for admission. The patient is agreeable with this plan. - Diagnoses Provider Diagnoses: Unstable angina, Non-STEMI (non-ST elevated myocardial infarction) - Physician Notifications Discussed Care Of Patient With: Krishna Piper Time Discussed With Above Provider: 01:35 Instructed by Provider To: Other - recommended admission and starting her on Heparin and beta blockers to get her HR down Discharge - Sign-Out/Discharge Documenting (check all that apply): Patient Departure - admit Patient Received Moderate/Deep Sedation with Procedure: No - Discharge Plan Condition: Improved Disposition: ADMITTED TO [facility] - Billing Disposition and Condition Condition: IMPROVED Disposition: Admitted to [facility] - Attestation Statements Document Initiated by Scribe: Yes Documenting Scribe: Samson Lorenzana Provider For Whom Lisaibkristin is Documenting (Include Credential): MD Lisa Spainibe Attestation: Samson Messer scribed for Fab Link MD on 04/21/19 at 0547. Scribe Documentation Reviewed: Yes Provider Attestation: The documentation as recorded by the lisaibe, Samson Lorenzana accurately reflects the service I personally performed and the decisions made by me, Fab Link MD Status of Scribe Document: Viewed Consult Consult: At 01:[address] West, hospitalist, who accepted the patient for admission.
[2019-04-17] MEDS ORDERED: Ondansetron INJ* 2 MG/ML VIAL IV ONE (23:43)
[2019-04-18] MEDS ORDERED: PROCHLORPERAZINE INJ 5 MG/ML 2 ML VIAL IV ONE (01:33)
[2019-04-18] MEDS ORDERED: Metoprolol Tartrate TAB* 25 MG PO ONE (01:36)
[2019-04-18] MEDS ORDERED: Metoprolol Tartrate IV* 1 MG/ML 5 ML VIAL IV ONE (01:37)
[2019-04-18] MEDS ORDERED: Aspirin 81 mg CHEW TAB* 81 MG TAB.CHEW PO ONE (01:38)
[2019-04-18] MEDS ORDERED: Heparin DRIP 25,000 UNITS(*) 25,000 UNITS/500 ML BAG IV SCH (01:45)
[2019-04-18] MEDS ORDERED: Heparin VIAL(*) 5000 UNITS/ML VIAL (FIVE THOUSAND) IV SCH (02:00)
[2019-04-18 02:08] LABS: ABS Basophils 0.1 10^3/ul (0-0.2); ABS Eosinophils 0.1 10^3/ul (0-0.6); ABS Monocytes 0.8 10^3/ul (0-0.8); ABS Neutrophils 11.8 10^3/ul (1.5-7.7); Eosinophil % 0.4 %; Hematocrit 39 % (35-47); Hemoglobin 12.9 g/dL (12.0-16.0); Mean Corpuscular HGB Conc 33 g/dL (31-36); Mean Corpuscular Hemoglobin 32 pg (27-31); Mean Corpuscular Volume 94 fL (80-97); Mean Platelet Volume 10.7 fL (7.4-10.4); Platelet Count 215 10^3/uL (150-450); Red Cell Distribution Width 13 % (10-15); White Blood Count 13.7 10^3/uL (3.5-10.8)
--- NOTE | 2019-04-18 02:19 | HP ---
History of Present Illness - History of Present Illness Reason for Visit: Palpitations History of Present Illness: 69yoF PMHx of CAD s/p 2 vessel CABG(Age 27), Asending Aortic aneurysm s/p repair here complaining of an elevated heart rate 109-115 since 7PM last night. The patient also c/o SOB and nausea. She denies any swelling or pain in legs, fevers, chills or abdominal pain. She called Dr. Price but Dr. Piper answered and told her to get to ER. - Past Medical History Cardiac: CAD - s/p 2 vessel CABG., HTN, Hyperlipidemia, Other - Asending Aortic Aneurysm repaired with CABG at age 27. 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 Review of Systems - Measurements Intake and Output: Intake and Output Last 24 Hours 04/15/19 04/16/19 04/17/19 04/18/19 06:59 06:59 06:59 06:59 Intake Total 8 Balance 8 Weight 152 lb Intake: IV Fluids 4 IVPB 4 - Review of Systems Constitutional Symptoms: Negative: Fever Pulmonary: Positive: Shortness of Breath Cardiology: Positive: Shortness of Breath, Palpitations Negative: Chest Pain, Syncope Gastroenterology: Positive: Nausea Negative: Vomiting Genital - Urinary: Negative: Dysuria, Polyuria Musculoskeletal: Negative: Joint Pain, Low Back Pain Objective Active Medications: Heparin Sodium (Porcine) (Heparin Vial(*)) 0 units IV .PER PROTOCOL [facility] Heparin Sodium/Dextrose (Heparin Drip 25,000 Units(*)) 25,000 units in 500 mls @ 0 mls/hr IV PER RATE [facility]; Protocol Vital Signs - 8 hr 04/17/19 04/17/19 04/17/19 22:09 22:14 22:28 Temperature 98.3 F Pulse Rate 105 107 Respiratory 20 15 24 Rate Blood Pressure 148/86 138/94 (mmHg) O2 Sat by Pulse 97 97 Oximetry 04/17/19 04/17/19 04/17/19 22:50 23:01 23:14 Temperature Pulse Rate 109 108 104 Respiratory 22 21 23 Rate Blood Pressure 149/115 134/90 151/82 (mmHg) O2 Sat by Pulse 96 96 97 Oximetry 04/17/19 04/17/19 04/18/19 23:44 23:53 00:00 Temperature Pulse Rate 101 99 99 Respiratory 22 17 21 Rate Blood Pressure 134/85 (mmHg) O2 Sat by Pulse 97 98 92 Oximetry 04/18/19 04/18/19 04/18/19 00:21 00:44 01:00 Temperature Pulse Rate 103 103 102 Respiratory 18 18 17 Rate Blood Pressure 137/72 133/81 (mmHg) O2 Sat by Pulse 96 95 96 Oximetry Oxygen Devices in Use Now: None Eyes: No Scleral Icterus, PERRLA Ears/Nose/Mouth/Throat: NL Teeth, Lips, Gums, Clear Oropharnyx, Mucous Membranes Moist Neck: NL Appearance and Movements; NL JVP Respiratory: Clear to Auscultation Cardiovascular: NL Sounds; No Murmurs; No JVD, RRR Abdominal: NL Sounds; No Tenderness; No Distention Extremities: No Edema Skin: No Rash or Ulcers Neurological: Alert and Oriented x 3, NL Sensation, NL Muscle Strength and Tone Result Diagrams: 04/18/19 02:00 04/18/19 02:00 Additional Lab and Data: Lab Results 04/17/19 04/17/19 04/17/19 Range/Units 22:20 22:20 22:20 WBC 11.8 H (3.5-10.8) 10^3/uL RBC 4.23 (3.70-4.87) 10^6 /uL Hgb 13.3 (12.0-16.0) g/dL Hct 40 (35-47) % MCV 94 (80-97) fL MCH 32 H (27-31) pg MCHC 34 (31-36) g/dL RDW 13 (10-15) % Plt Count 241 (150-450) 10^3/uL MPV 10.5 H (7.4-10.4) fL Neut % (Auto) 75.4 % Lymph % (Auto) 14.5 % [place] % (Auto) 8.1 % Eos % (Auto) 1.1 % Baso % (Auto) 0.9 % Absolute Neuts (auto) 8.9 H (1.5-7.7) 10^3/ul Absolute Lymphs (auto) 1.7 (1.0-4.8) 10^3/ul Absolute Monos (auto) 1.0 H (0-0.8) 10^3/ul Absolute Eos (auto) 0.1 (0-0.6) 10^3/ul Absolute Basos (auto) 0.1 (0-0.2) 10^3/ul Absolute Nucleated RBC 0.0 10^3/ul Nucleated RBC % 0.0 INR (Anticoag Therapy) 0.98 (0.82-1.09) Sodium 137 (135-145) mmol/L Potassium 3.8 (3.5-5.0) mmol/L Chloride 104 (101-111) mmol/L Carbon Dioxide 25 (22-32) mmol/L Anion Gap 8 (2-11) mmol/L BUN 12 (6-24) mg/dL Creatinine 0.67 (0.51-0.95) mg/dL Est GFR ( Amer) 105.6 (>60) Est GFR (Non-Af Amer) 87.3 (>60) BUN/Creatinine Ratio 17.9 (8-20) Glucose 136 H (70-100) mg/dL Calcium 9.4 (8.6-10.3) mg/dL Total Bilirubin 0.40 (0.2-1.0) mg/dL AST 25 (13-39) U/L ALT 21 (7-52) U/L Alkaline Phosphatase 76 (34-104) U/L Troponin I 0.00 (<0.04) ng/mL Total Protein 7.0 (6.4-8.9) g/dL Albumin 4.1 (3.2-5.2) g/dL Globulin 2.9 (2-4) g/dL Albumin/Globulin Ratio 1.4 (1-3) EKG Data: Sinus tachycardia with few PVC. Assess/Plan/Problems-Billing Assessment: 69yoF PMHx of CAD s/p 2 vessel CABG(Age 27), Asending Aortic aneurysm s/p repair admitted for palpitations. - Patient Problems (1) Palpitations Current Visit: Yes Status: Acute Code(s): R00.2 - PALPITATIONS SNOMED Code (s): 93891145 Comment: Given her cardiac history will get serial cardiac enzymes, ECHO and consider Cardiology input. (2) CAD (coronary artery disease) Current Visit: No Status: Acute Code(s): I25.10 - ATHSCL HEART DISEASE OF [place] CORONARY ARTERY W/O ANG PCTRS SNOMED Code(s): 87987136 Comment: Continue home meds. (3) Depression Current Visit: No Status: Acute Code(s): F32.9 - MAJOR DEPRESSIVE DISORDER, SINGLE EPISODE, UNSPECIFIED SNOMED Code(s): 97962730 Comment: Continue home meds. (4) Giant cell arteritis Current Visit: No Status: Acute Code(s): M31.6 - OTHER GIANT CELL ARTERITIS SNOMED Code(s): 600448840 Comment: Continue prednisone. (5) Hyperlipemia Current Visit: No Status: Acute Code(s): E78.5 - HYPERLIPIDEMIA, UNSPECIFIED SNOMED Code(s): 17534502 Comment: Continue statin. (6) Hypertension Current Visit: No Status: Acute Code(s): I10 - ESSENTIAL (PRIMARY) HYPERTENSION SNOMED Code(s): 09908223 Comment: Continue home meds. (7) Leukocytosis Current Visit: Yes Status: Acute Code(s): D72.829 - ELEVATED WHITE BLOOD CELL COUNT, UNSPECIFIED SNOMED Code(s): 919655163 Comment: Likely reactive monitor for now. (8) Full code status Current Visit: No Status: Acute Code(s): Z78.9 - OTHER SPECIFIED HEALTH STATUS SNOMED Code(s): 576423500 (9) DVT prophylaxis Current Visit: No Status: Acute Code(s): QHE8834 - SNOMED Code(s): 766765562 Comment: SCD. Allergies/Medications Medication: Citalopram TAB* [Celexa TAB*] 20 mg PO DAILY 12/26/15 [History Confirmed ] Folic Acid TAB* [Folvite TAB*] 1 mg PO DAILY 12/26/15 [History Confirmed ] Losartan TAB* [Cozaar TAB*] 25 mg PO DAILY 12/26/15 [History Confirmed 04/18/19] clonazePAM [Clonazepam] 0.5 mg PO DAILY PRN 12/26/15 [History Confirmed 04/18/19 ] Aspirin [Aspirin 81 MG TAB] 81 mg PO DAILY 03/11/17 [History Confirmed 04/18/19] Calcium Carbonate/Vitamin D3 [Calcium 500-Vit D3 200 Caplet] 1 tab PO DAILY [History Confirmed 04/18/19] Latanoprost 0.005%* [Xalatan 0.005%*] 1 drop BOTH EYES DAILY 03/11/17 [History Confirmed 04/18/19] Rosuvastatin Calcium 10 mg PO MOWEFR 03/11/17 [History Confirmed 04/18/19] Nadolol 20 mg PO DAILY 06/02/17 [History Confirmed 04/18/19] predniSONE TAB* [Deltasone TAB*] 5 mg PO DAILY 06/02/17 [History Confirmed 04/18] Allergies/Adverse Reactions: Allergies Allergy/AdvReac Type Severity Reaction Status Date / Time Iodinated Contrast- Oral and Allergy Unknown Verified 04/17/19 22:16 IV Dye Reaction Details peanut Allergy Unknown Verified 04/17/19 22:15 Reaction Details
[2019-04-18 02:25] LABS: EGFR African American 141.5 (>60); EGFR Non-African American 116.9 (>60)
[2019-04-18 02:28] LABS: Troponin I 0.01 ng/mL (<0.04)
[2019-04-18] MEDS: NS 0.9% 1000 ML** 1,000 ML IV SCH ×2 (06:07→23:52)
[2019-04-18 06:23] LABS: Magnesium 1.9 mg/dL (1.9-2.7)
[2019-04-18] MEDS: predniSONE TAB* 5 MG PO SCH (07:25)
[2019-04-18 08:24] LABS: C Reactive Protein 45.26 mg/L (<8.01)
[2019-04-18] MEDS ORDERED: Atorvastatin* 20 MG TAB PO SCH ×2 (09:00→18:00)
[2019-04-18] MEDS ORDERED: Latanoprost 0.005%* 2.5 ml BTL BOTH EYES SCH ×2 (09:00→18:00)
[2019-04-18] MEDS ORDERED: Citalopram TAB* 20 MG PO SCH ×3 (09:00→21:00)
[2019-04-18] MEDS ORDERED: Aspirin EC TAB* 81 MG TAB.EC PO SCH ×2 (09:00→18:00)
[2019-04-18] MEDS ORDERED: Losartan TAB* 25 MG PO SCH ×2 (09:00→18:00)
[2019-04-18] MEDS ORDERED: Nadolol TAB* 40 MG PO SCH (09:00)
[2019-04-18] MEDS: clonazePAM TAB(*) 0.5 MG PO PRN (09:04)
[2019-04-18] MEDS: Folic Acid TAB* 1 MG PO SCH (09:04)
--- NOTE | 2019-04-18 09:16 | PN ---
Subjective Date of Service: 04/18/19 Interval History: pt had henna constipated, eating and drinking less and has no AC where she sleeps. finally had 3 BM's after talking a laxative yesterday in ED Denies abd pain, SOB, cough, fevers, or urinary symptoms Objective Active Medications: Aspirin (Aspirin Ec Tab*) 81 mg PO DAILY [facility] Atorvastatin Calcium (Lipitor*) 20 mg PO MOWEFR [facility] Citalopram Hydrobromide (Celexa Tab*) 20 mg PO DAILY [facility] Clonazepam (Klonopin Tab(*)) 0.5 mg PO DAILY PRN PRN Reason: ANXIETY Last Admin: 04/18/19 09:04 Dose: 0.5 mg Folic Acid (Folvite Tab*) 1 mg PO DAILY [facility] Last Admin: 04/18/19 09:04 Dose: 1 mg Sodium Chloride (Ns 0.9% 1000 Ml) 1,000 mls @ 75 mls/hr IV PER RATE [facility] Last Admin: 04/18/19 06:07 Dose: 75 mls/hr Latanoprost (Xalatan 0.005%*) 1 drop BOTH EYES DAILY [facility] Losartan Potassium (Cozaar Tab*) 25 mg PO DAILY [facility] Nadolol (Corgard Tab*) 40 mg PO DAILY [facility] Prednisone (Deltasone Tab*) 5 mg PO 729 [facility] Last Admin: 04/18/19 07:25 Dose: 5 mg Vital Signs - 8 hr 04/18/19 04/18/19 04/18/19 01:14 01:44 02:00 Temperature Pulse Rate 96 109 105 Respiratory 23 15 18 Rate Blood Pressure 134/72 133/85 (mmHg) O2 Sat by Pulse 93 95 97 Oximetry 04/18/19 04/18/19 04/18/19 02:14 02:44 03:00 Temperature Pulse Rate 99 88 86 Respiratory 19 22 20 Rate Blood Pressure 141/80 128/72 (mmHg) O2 Sat by Pulse 96 94 92 Oximetry 04/18/19 04/18/19 04/18/19 03:15 03:44 04:00 Temperature Pulse Rate 90 83 90 Respiratory 19 19 21 Rate Blood Pressure 124/66 85/56 (mmHg) O2 Sat by Pulse 95 94 95 Oximetry 04/18/19 04/18/19 04/18/19 04:15 04:44 05:00 Temperature Pulse Rate 92 87 86 Respiratory 20 21 24 Rate Blood Pressure 122/69 93/64 (mmHg) O2 Sat by Pulse 95 94 94 Oximetry 04/18/19 04/18/19 04/18/19 05:13 05:14 05:19 Temperature Pulse Rate 85 86 Respiratory 20 20 16 Rate Blood Pressure 88/58 88/58 (mmHg) O2 Sat by Pulse 94 94 Oximetry 04/18/19 04/18/19 04/18/19 05:34 05:37 07:15 Temperature 98.6 F 97.9 F 98.4 F Pulse Rate 86 93 92 Respiratory 16 16 20 Rate Blood Pressure 88/58 117/62 99/61 (mmHg) O2 Sat by Pulse 98 96 98 Oximetry 04/18/19 09:04 Temperature Pulse Rate Respiratory 16 Rate Blood Pressure (mmHg) O2 Sat by Pulse Oximetry Oxygen Devices in Use Now: None Result Diagrams: 04/18/19 02:00 04/18/19 02:00 Additional Lab and Data: Lab Results 04/17/19 04/17/19 04/17/19 Range/Units 22:20 22:20 22:20 WBC 11.8 H (3.5-10.8) 10^3/uL RBC 4.23 (3.70-4.87) 10^6 /uL Hgb 13.3 (12.0-16.0) g/dL Hct 40 (35-47) % MCV 94 (80-97) fL MCH 32 H (27-31) pg MCHC 34 (31-36) g/dL RDW 13 (10-15) % Plt Count 241 (150-450) 10^3/uL MPV 10.5 H (7.4-10.4) fL Neut % (Auto) 75.4 % Lymph % (Auto) 14.5 % [place] % (Auto) 8.1 % Eos % (Auto) 1.1 % Baso % (Auto) 0.9 % Absolute Neuts (auto) 8.9 H (1.5-7.7) 10^3/ul Absolute Lymphs (auto) 1.7 (1.0-4.8) 10^3/ul Absolute Monos (auto) 1.0 H (0-0.8) 10^3/ul Absolute Eos (auto) 0.1 (0-0.6) 10^3/ul Absolute Basos (auto) 0.1 (0-0.2) 10^3/ul Absolute Nucleated RBC 0.0 10^3/ul Nucleated RBC % 0.0 INR (Anticoag Therapy) 0.98 (0.82-1.09) Sodium 137 (135-145) mmol/L Potassium 3.8 (3.5-5.0) mmol/L Chloride 104 (101-111) mmol/L Carbon Dioxide 25 (22-32) mmol/L Anion Gap 8 (2-11) mmol/L BUN 12 (6-24) mg/dL Creatinine 0.67 (0.51-0.95) mg/dL Est GFR ( Amer) 105.6 (>60) Est GFR (Non-Af Amer) 87.3 (>60) BUN/Creatinine Ratio 17.9 (8-20) Glucose 136 H (70-100) mg/dL Calcium 9.4 (8.6-10.3) mg/dL Total Bilirubin 0.40 (0.2-1.0) mg/dL AST 25 (13-39) U/L ALT 21 (7-52) U/L Alkaline Phosphatase 76 (34-104) U/L Troponin I 0.00 (<0.04) ng/mL Total Protein 7.0 (6.4-8.9) g/dL Albumin 4.1 (3.2-5.2) g/dL Globulin 2.9 (2-4) g/dL Albumin/Globulin Ratio 1.4 (1-3) EKG Data: Sinus tachycardia with few PVC. Assess/Plan/Problems-Billing Assessment: 69yoF PMHx of CAD s/p 2 vessel CABG(Age 27),giant cell arteritis , Asending Aortic aneurysm s/p repair admitted for palpitations. - Patient Problems (1) SIRS (systemic inflammatory response syndrome) Comment: Leukocytosis and tachy pt had been constipated, ate poorly and has no AC where she sleeps she may be just dehydrated , but will get UA and blood cx since pt is on chronic Prednisone (2) Palpitations Comment: d/w cardiology. Dr. Piper increased Nadolol will cont IVF suspect palpitations due to SIRS and not intrising cardiac issue D dimer at 224, but no SOB, CP, recent travel or leg edema to suspect PE (3) Giant cell arteritis Comment: Continue prednisone. (4) Hypertension Comment: Continue home meds. (5) DVT prophylaxis Comment: lovenox Status and Disposition: OBV,
[2019-04-18] MEDS: Enoxaparin(*) 40 MG/0.4 ML SYR SUBCUT SCH (10:15)
[2019-04-18] MEDS: Nadolol TAB* 40 MG PO SCH (10:15)
[2019-04-18] MEDS: Acetaminophen TAB* 325 MG PO PRN ×2 (12:15→20:50)
--- NOTE | 2019-04-18 14:15 | ECHO ---
*[facility]* [place] [address] Fax #: [phone] Transthoracic Echocardiogram Patient: Meaghan Luna : 1950 Study Date: 04/18/2019 Age: 69 Gender: F HR: 86 bpm Height: 66 in /167.6 cm BSA: 1.78 m^2 Weight: 151.7 lb /68.9 kg BMI: 24.5 kg/m^2 *Brake Rider: * Lorena Currie RDCS RN *Referring Physician: * Mark West *Reading Physician: * Krishna Piper MD Indications: Abnormal EKG. History: Coronary artery disease. Risk factors: Hypertension. Dyslipidemia. Labs, prior tests, procedures, and surgery: Coronary artery bypass grafting. Ascending aortic aneurysm repair. Conclusions Summary: 1. Left ventricle: The cavity size is normal. Wall thickness is normal. Systolic function is normal. The estimated ejection fraction is 55-60%. Akinesis of the apicalinferior myocardium. Akinesis of the apicalanteroseptal myocardium. 2. Regional wall motion abnormality: Akinesis of the apical inferior and apical septal myocardium; severe hypokinesis of the apical myocardium. 3. Right ventricle: The cavity size is normal. Systolic function is normal. 4. Ventricular septum: Ventricular septal wall motion has a postoperative appearance. 5. Left atrium: The atrium is normal in size. 6. Pulmonary arteries: Systolic pressure is within the normal range, estimated to be 34 mm Hg. 7. No significant valvular abnormalities noted. Recommendations: Compared to prior study from 09/2015, LVEF previously reported at 45% Study data: Transthoracic echocardiogram. Procedure: Transthoracic echocardiography was performed. Image quality was fair. Complete 2D, spectral Doppler, and color flow Doppler. Location: Procedure room. Patient status: Observation. Patient room number: 448-01. Rhythm: Normal sinus rhythm. Findings Left ventricle: The cavity size is normal. Wall thickness is normal. Systolic function is normal. The estimated ejection fraction is 55-60%. Regional wall motion abnormalities: Akinesis of the apicalinferior myocardium. Akinesis of the apicalanteroseptal myocardium. Akinesis of the apical inferior and apical septal myocardium; severe hypokinesis of the apical myocardium. Doppler parameters are consistent with abnormal left ventricular relaxation (grade 1 diastolic dysfunction). Right ventricle: The cavity size is normal. Systolic function is normal. Ventricular septum: Ventricular septal wall motion has a postoperative appearance. Left atrium: The atrium is normal in size. Right atrium: The atrium is normal in size. Mitral valve: The valve is structurally normal. There is no evidence of stenosis. There is mild regurgitation. Aortic valve: The valve is structurally normal. The valve is trileaflet. Cusp separation is normal. There is no evidence of stenosis. There is no regurgitation. Tricuspid valve: The valve is structurally normal. There is no evidence of stenosis. There is trace to mild regurgitation. Pulmonic valve: The valve is structurally normal. There is no evidence of stenosis. There is mild regurgitation. Aorta: Aortic root: The aortic root is not dilated. Ascending aorta: The ascending aorta is not dilated. Aortic arch: The aortic arch is not visualized. Pericardium: There is no pericardial effusion. Pulmonary arteries: Not well visualized. Systolic pressure is within the normal range, estimated to be 34 mm Hg. Systemic veins: Inferior vena cava: The vessel is normal in size. The respirophasic diameter changes are in the normal range (>= 50%). Measurements Left ventricle Value Ref Aortic valve Value Ref SONA, LAX 4.9 cm 3.8 - 5.2 Gaurang diam, ED 1.9 cm ----- ESD, LAX 3.3 cm 2.2 - 3.5 Peak v, S 1.4 m/sec ----- FS, LAX 32 % 27 - 45 VTI, S 27.2 cm ----- PW, ED 0.9 cm 0.6 - 0.9 Mean grad, S 5.0 mm Hg ----- IVS/PW, ED 1 Peak grad, S 8.0 mm Hg ----- PW/ID, ED 0.18 LVOT/AV, VTI ratio 0.67 ----- E', lat gaurang, TDI (L) 7.7 cm/sec >=10.0 E/e', lat gaurang, 12 Mitral valve Value Ref TDI Peak E 0.9 m/sec ----- E', med gaurang, TDI (L) 6.5 cm/sec >=7.0 Peak A 0.75 m/sec --- -- E/e', med gaurang, 14 Decel time 197 ms ----- TDI Peak grad, D 3.3 mm Hg ----- E', avg, TDI 7.1 cm/sec Peak E/A ratio 1.2 ----- E/e', avg, TDI 13 <=14 Pulmonic valve Value Ref LVOT Value Ref Peak v, S 0.9 m/sec ----- Peak joshua, S 0.94 m/sec Peak grad, S 3.0 mm Hg ----- VTI, S 18.3 cm Mean grad, S 2 mm Hg Tricuspid valve Value Ref TR peak v 2.8 m/sec <=2.8 Ventricular septum Value Ref Peak RV-RA grad, S 31 mm Hg ----- IVS, ED 0.9 cm 0.6 - 0.9 Max TR joshua 2.8 m/sec ----- Right ventricle Value Ref Aortic root Value Ref SONA, LAX 2.7 cm Root diam 3.1 cm <4.0 SONA minor ax, A4C 3.2 cm 1.9 - 3.5 mid Ascending aorta Value Ref Pressure, S 34 mm Hg AAo AP diam, S 2.9 cm ----- Left atrium Value Ref Pulmonary artery Value Ref AP dim, ES 3.60 cm 2.70 - Pressure, S 31.0 mm Hg ----- 3.80 ML dim, A4C 3.8 cm Inferior vena cava Value Ref SI dim, A4C 4.9 cm Diam 1.0 cm ----- Vol/bsa, ES, 1-p 26 ml/m^2 11 - 40 A4C Vol/bsa, ES, A/L 29 ml/m^2 16 - 34 Right atrium Value Ref ML dim, ES, A4C 4.1 cm 2.6 - 4.4 SI dim, ES, A4C 4.8 cm 3.4 - 5.3 Estimated RAP 3 mm Hg Legend: (L) and (H) saroj values outside specified reference range. Prepared and electronically signed by Krishna Piper MD 04/18/2019 14:14
--- NOTE | 2019-04-18 16:11 | CONSULT ---
Subjective Date of Service: 04/18/19 Interval History: Date of admission 04/17/2019 Date of consult 04/18/2019 PCP: Dr. Ritchie Bulk Delivery Driver: Dr. Clark CC: Palpitations, weakness, dyspnea Reason for consult: PVCS's, NSVT HPI Meaghan Luna is a 69 year old woman as below. Recently she has had a viral like illness with poor PO intake, fatigue and constipation the last 2-3 days. Yesterday she felt her heart beating elevated not about 110 bpm almost the entire day with occasional skipped beat. The last time she felt this was over [address] Oliveira had her stop drinking iced tea at the time and these symptoms resolved. She had called our answering service last PM, she was very anxious. I was concerned she may have been in atrial fibrillation and advised an ER evaluation. Here in our ER she was found with sinus tachycardia and PVC's. She did have an asymptomatic 11 beat episode of NSVT overnight that was asymptomatic. She denies any sustained palpitations, presyncope, syncope or seizures.. She states up until illness last few days she has felt well without any dyspnea or chest pain. Allergies: IV Contrast Dye, N/V 1977 Cath 06/09/14 Peanuts 06/23/15 Pravastatin 11/05/15 PMH: Medical Problems: Old VA/Coronary Artery Disease (CAD) - CABG Angina: SS chest pressure/ squeezing, Left elbow pain. Ectatic CA's (2016 ? FMD) Peripheral Vascular Disease (PVD) - (2016) intracranial vascular stenosis, has vasc. surgeon Navid, not candidate for stenting. 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 Personal Habits: Smoking: Patient has never smoked.Alcohol: Denies alcohol use.Drug Use : Denies Drug Use.Daily Caffeine: Consumes on average 2 cups of regular coffee per day.Exercise Type: Exercises sporadically - not been walking lately. Medications Active Medications: Acetaminophen (Tylenol Tab*) 650 mg PO Q4H PRN PRN Reason: FEVER/PAIN Last Admin: 04/18/19 12:15 Dose: 650 mg Aspirin (Aspirin Ec Tab*) 81 mg PO 1800 MEERA Atorvastatin Calcium (Lipitor*) 20 mg PO MoWeFr MEERA Citalopram Hydrobromide (Celexa Tab*) 20 mg PO 1800 MEERA Clonazepam (Klonopin Tab(*)) 0.5 mg PO DAILY PRN PRN Reason: ANXIETY Last Admin: 04/18/19 09:04 Dose: 0.5 mg Enoxaparin Sodium (Lovenox(*)) 40 mg SUBCUT Q24H [facility] Last Admin: 04/18/19 10:15 Dose: 40 mg Folic Acid (Folvite Tab*) 1 mg PO DAILY [facility] Last Admin: 04/18/19 09:04 Dose: 1 mg Sodium Chloride (Ns 0.9% 1000 Ml) 1,000 mls @ 75 mls/hr IV PER RATE [facility] Last Admin: 04/18/19 06:07 Dose: 75 mls/hr Latanoprost (Xalatan 0.005%*) 1 drop BOTH EYES 1800 MEERA Losartan Potassium (Cozaar Tab*) 25 mg PO 1800 MEERA Nadolol (Corgard Tab*) 40 mg PO DAILY [facility] Last Admin: 04/18/19 10:15 Dose: 40 mg Prednisone (Deltasone Tab*) 5 mg PO 0730 [facility] Last Admin: 04/18/19 07:25 Dose: 5 mg Home Medications: Citalopram TAB* [Celexa TAB*] 20 mg PO DAILY 12/26/15 [History Confirmed ] Folic Acid TAB* [Folvite TAB*] 1 mg PO DAILY 12/26/15 [History Confirmed ] Losartan TAB* [Cozaar TAB*] 25 mg PO DAILY 12/26/15 [History Confirmed 04/18/19] clonazePAM [Clonazepam] 0.5 mg PO DAILY PRN 12/26/15 [History Confirmed 04/18/19 ] Aspirin [Aspirin 81 MG TAB] 81 mg PO DAILY 03/11/17 [History Confirmed 04/18/19] Calcium Carbonate/Vitamin D3 [Calcium 500-Vit D3 200 Caplet] 1 tab PO DAILY [History Confirmed 04/18/19] Latanoprost 0.005%* [Xalatan 0.005%*] 1 drop BOTH EYES DAILY 03/11/17 [History Confirmed 04/18/19] Rosuvastatin Calcium 10 mg PO MOWEFR 03/11/17 [History Confirmed 04/18/19] Nadolol 20 mg PO DAILY 06/02/17 [History Confirmed 04/18/19] predniSONE TAB* [Deltasone TAB*] 5 mg PO DAILY 06/02/17 [History Confirmed 04/18] Review of Systems - Measurements Intake and Output: Intake and Output Last 24 Hours 04/16/19 04/17/19 04/18/19 04/19/19 06:59 06:59 06:59 06:59 Intake Total 8 960 Balance 8 960 Weight 151 lb 12.8 oz Intake: IV Fluids 4 IVPB 4 Oral 960 - Review of Systems Constitutional Symptoms: Positive: Weakness, Fatigue Negative: Weight Gain, Weight Loss, Fever, Night Sweats Dermatology: Negative: Rash, Skin Lesions HEENT: Negative: Change in Hearing, Vertigo Eyes: Negative: Change in Vision, Double Vision Thyroid: Negative: Cold Intolerance, Heat Intolerance, Weight Loss, Weight Gain Pulmonary: Negative: Normal, Cough, Sputum, Hemoptysis, Wheezing, Respiratory Distress, Shortness of Breath, COPD, Asthma, Exercise Intolerance, Home Oxygen, Other Cardiology: Negative: Chest Pain, Swelling of Ankles, Edema, Faintness, Syncope, Paroxysmal Nocturnal Dyspnea, Orthopnea Gastroenterology: Positive: Anorexia, Constipation, Change in Bowel Habits Negative: Diarrhea, Blood in Stools, Haematemesis, Melena Genital - Urinary: Negative: Dysuria, Hematuria, Nocturia Musculoskeletal: Negative: Joint Pain, Joint Stiffness Endocrinology: Negative: Polydipsia, Polyuria Hematologic/Lymphatic: Positive: Use of Antiplatelet Drugs Negative: Hx Leukemia, Hx Lymphoma, Use of Anticoagulant Neurology: Negative: Change in Speech, Change in Sphincter Function, Change in Walking Psychiatry: Positive: Anxiety, Unusual Anxiety Negative: Depression, Suicidal Ideation Allergic/Immunologic: Negative: Hx HIV, Immunocompromise Review of Systems Statement: All other review of systems negative, unless stated above. Objective Vital Signs: Temp Pulse Resp BP Pulse Ox 98 F 87 18 115/64 95 04/18/19 11:48 04/18/19 11:48 04/18/19 12:17 04/18/19 11:48 04/18/19 11:48 Oxygen Devices in Use Now: None Appearance: nad, pleasant Ears/Nose/Mouth/Throat: Clear Oropharnyx, Mucous Membranes Moist Neck: NL Appearance and Movements; NL JVP, Trachea Midline Respiratory: Symmetrical Chest Expansion and Respiratory Effort, Clear to Auscultation Cardiovascular: RRR, - - sternotomy scar noted, no significant murmur noted. Abdominal: NL Sounds; No Tenderness; No Distention Extremities: No Edema Skin: No Rash or Ulcers Neurological: Alert and Oriented x 3 Laboratory Results: 04/18/19 02:00 04/18/19 02:00 INR (Anticoag Therapy) 0.98 (0.82-1.09) 04/17/19 22:20 APTT 33.2 seconds (26.0-38.0) 04/18/19 02:00 Total Bilirubin 0.40 mg/dL (0.2-1.0) 04/17/19 22:20 AST 25 U/L (13-39) 04/17/19 22:20 ALT 21 U/L (7-52) 04/17/19 22:20 Alkaline Phosphatase 76 U/L (34-104) 04/17/19 22:20 Total Protein 7.0 g/dL (6.4-8.9) 04/17/19 22:20 Albumin 4.1 g/dL (3.2-5.2) 04/17/19 22:20 Globulin 2.9 g/dL (2-4) 04/17/19 22:20 Albumin/Globulin Ratio 1.4 (1-3) 04/17/19 22:20 04/17/19 04/18/19 04/18/19 22:20 00:59 04:00 Troponin I 0.00 0.01 0.01 Diagnostic Imaging: Cardiac Testing: Echocardiogram - (09/22/2015) 40-45% mild MR, mild to mod TR, mild to mod PI, PA pr 36 mmHg. Stress Test - (07/05/2010) Echocardiogram - (07/07/2010) Apical VA, EF 30%, PApr 35 mmHg Nuclear Test - (07/05/2010) Anterior apical VA, rest EF 59%, post chem stress 49% . Cardiac Procedures: Coronary Bypass Grafting - (04/06/1978) SVG to mid LAD, SVG 2 to OM of Cx. LM tied off. Cardiac Catheterization - (04/02/1978) EF 60%, Aneurismal LM, 60% occlusion LM distal to aneurism. 01/2013 CT coronary angiogram: Patent SVG and LAD and Lcx Atretic left main Exam Date: 04/17/19 IMPRESSION: #. Cardiomegaly without evidence for pulmonary edema. #. Potential pulmonary arterial hypertension. #. Correlate for probable obstructive lung disease. Transthoracic Echocardiogram Study Date: 04/18/2019 Conclusions Summary: 1. Left ventricle: The cavity size is normal. Wall thickness is normal. Systolic function is normal. The estimated ejection fraction is 55-60%. Akinesis of the apicalinferior myocardium. Akinesis of the apicalanteroseptal myocardium. 2. Regional wall motion abnormality: Akinesis of the apical inferior and apical septal myocardium; severe hypokinesis of the apical myocardium. 3. Right ventricle: The cavity size is normal. Systolic function is normal. 4. Ventricular septum: Ventricular septal wall motion has a postoperative appearance. 5. Left atrium: The atrium is normal in size. 6. Pulmonary arteries: Systolic pressure is within the normal range, estimated to be 34 mm Hg. 7. No significant valvular abnormalities noted. Recommendations: Compared to prior study from 09/2015, LVEF previously reported at 45% EKG Data: EKG 04/17/2019: Sinus tachyardia, St-depression/TWI v4-v6 and 1/aVL improved from 05/2018 Multiple pvc's of 2 different morphologies Assessment/Plan Overall, suspect patients symptoms on presentation were triggered by a viral illness and dehydration compounded by subsequent worsening of anxiety. After IV fluids and supportive care, she is now asymptomatic, ectopy has abated and heart rate returned to normal. She has no anginal symptoms and ruled out for acute VA. Mg 1.9 will give IV replacement (ordered). She has no sustained pathologic palpitations or syncope. I did increase the nadolol from 20 to 40 mg po daily for ectopy and arrhythmia suppression.. Her most recent LVEF is overall normal today. Given that she does have a known apical scar, she should follow up with Dr. Clark after discharge.
[2019-04-18] MEDS ORDERED: Magnesium Sulfate 2 GM IV* 2 GM/50 ML BAG IVPB ONE (16:54)
[2019-04-18 17:09] LABS: Urine Appearance Clear; Urine Bilirubin Negative (Negative); Urine Blood Negative (Negative); Urine Color Straw; Urine Glucose Negative (Negative); Urine Ketones Negative (Negative); Urine Nitrite Negative (Negative); Urine Protein Negative (Negative); Urine Specific Gravity 1.004 (1.010-1.030); Urine Urobilinogen Negative (Negative)
[2019-04-18] MEDS: PROCHLORPERAZINE INJ 5 MG/ML 2 ML VIAL IV PRN (22:27)
[2019-04-19] MEDS: Acetaminophen TAB* 325 MG PO PRN (05:56)
[2019-04-19] MEDS: PROCHLORPERAZINE INJ 5 MG/ML 2 ML VIAL IV PRN (05:59)
[2019-04-19 06:06] LABS: ABS Basophils 0.1 10^3/ul (0-0.2); ABS Lymphocytes 1.2 10^3/ul (1.0-4.8); ABS Monocytes 0.7 10^3/ul (0-0.8); ABS Neutrophils 9.4 10^3/ul (1.5-7.7); Eosinophil % 0.3 %; Hematocrit 36 % (35-47); Hemoglobin 12.3 g/dL (12.0-16.0); Lymphocyte % 10.2 %; Mean Corpuscular HGB Conc 34 g/dL (31-36); Mean Corpuscular Hemoglobin 33 pg (27-31); Mean Corpuscular Volume 95 fL (80-97); Mean Platelet Volume 10.5 fL (7.4-10.4); Platelet Count 196 10^3/uL (150-450); Red Blood Count 3.78 10^6 /uL (3.70-4.87); Red Cell Distribution Width 13 % (10-15); White Blood Count 11.4 10^3/uL (3.5-10.8)
[2019-04-19 06:15] LABS: BUN/Creatinine Ratio 13.3 (8-20); C Reactive Protein 69.35 mg/L (<8.01); Calcium 8.2 mg/dL (8.6-10.3); EGFR African American 119.9 (>60); EGFR Non-African American 99.1 (>60)
[2019-04-19 07:21] VITALS: BP 99/54
[2019-04-19] MEDS: Folic Acid TAB* 1 MG PO SCH (07:33)
[2019-04-19] MEDS: clonazePAM TAB(*) 0.5 MG PO PRN (07:33)
[2019-04-19] MEDS: predniSONE TAB* 5 MG PO SCH (07:33)
[2019-04-19] MEDS: Nadolol TAB* 40 MG PO SCH (07:33)
[2019-04-19] MEDS: Enoxaparin(*) 40 MG/0.4 ML SYR SUBCUT SCH (10:13)
--- NOTE | 2019-04-19 19:41 | DS ---
DISCHARGE SUMMARY: DATE OF ADMISSION: 04/18/19 DATE OF DISCHARGE: 04/19/19 PRIMARY DIAGNOSES: 1. Systemic inflammatory response syndrome. 2. Viral illness. 3. Sinus tachycardia. 4. Palpitations. SECONDARY DIAGNOSES: 1. Giant cell arteritis. 2. Hypertension. 3. Hyperlipidemia. 4. Coronary artery disease. 5. Ascending aortic aneurysm repair. HOSPITAL COURSE: A 69-year-old female with history of coronary artery disease, status post 2-vessel CABG at age 57, ascending aortic aneurysm status post repair, hypertension, hyperlipidemia came to the hospital for evaluation of tachycardia and palpitations. Patient was noted to be in sinus tachycardia with the heart rate in the 110s to 120s. The patient was monitored on telemetry and the patient did not have any episodes of atrial fibrillation. Interestingly, the patient also had episodes of GI illness consistent with nausea, dry heaving, and abdominal cramps that she has had for about 2 to 3 days. The patient reports that she visited her mother in the [place] [facility] and could have had a sick contact, but otherwise reports feeling well. The patient was supportively managed with IV fluids and antinausea medications and her symptoms are improved. The patient reports that she has abdominal cramps at night around 9 o'clock and had an episode yesterday, which subsided with antinausea medication. The patient was seen by cardiology, Dr. Piper who thought the patient's palpitations and symptoms were triggered by a viral illness and dehydration compounded by subsequent worsening of her anxiety. Her magnesium was replaced. Supportive management with IV fluids was continued. He increased the nadolol from 20 mg to 40 mg for ectopy and arrhythmia suppression; however, the patient blood pressure's this morning noted to be in the 90s and the patient worried about her low blood pressure. The patient also is getting through recent illness. In light of this, the patient is being discharged on 20 mg of nadolol to take another 20 mg if she has symptoms or to discuss further with the cardiology on Sunday. The patient is also on low-dose lisinopril and the patient has not taken a dose in the hospital. She refused a dose as her blood pressure was on the lower side last night and the patient thinks she is on a lower lisinopril dose than listed on the DEC. The patient is advised to clarify this with her PCP and Cardiology and it would be beneficial to hold the CASTILLO in an acute GI illness situation to avoid risk of AGATA.The patient also advised to check her BP at home over the weekend and she will write it down. Other than that, the patient's symptoms of her GI viral illness have improved. The patient was offered to stay further in the hospital for supportive management if she did not feel good and the patient was divided about staying or going, but the patient also has a family reunion and other obligations, which she does not think is going to attend, but prefers going home today. The patient is advised to come back to the hospital if she has recurrent or worsening symptoms. The patient also has a history of giant cell arteritis and takes prednisone and her home dose prednisone is being continued. The patient was also advised to follow up with Cardiology next week and call her primary physician for an appointment and evaluation on Sunday. Case also discussed with and family at bedside. Vitals noted to be stable at time of discharge. Temperature 98.7, pulse 92, respiratory rate 19, oxygen saturation 93%, initial blood pressure, which was 99/55 was repeated prior to discharge and noted to be 110/70 and the patient is not dizzy and stable at time of discharge. MEDICATION LIST: At time of discharge: 1. Prednisone 5 mg daily. 2. Clonazepam 0.5 mg p.o. p.r.n. 3. Rosuvastatin 10 mg p.o. daily. 4. Zofran 4 mg p.o. q.6 hours p.r.n. 5. Nadolol 20 mg daily. 6. Latanoprost 1 drop both eyes daily. 7. Folic acid 1 mg p.o. daily. 8. Citalopram 20 mg. 9. Calcium, vitamin D. 10. Aspirin 81 mg p.o. daily. PHYSICAL EXAM: HEENT: NCAT. Heart: S1, S2 present. Regular at the time of exam. Lungs: Clear to auscultation bilaterally. Abdomen: Soft. Extremities : No edema. Neuro: Alert, oriented. LABORATORY DATA: Labs at time of discharge: Sodium 138, potassium 4, chloride 108, CO2 25, BUN 8, creatinine 0.6. WBC 11.4, hemoglobin 12.3, hematocrit 36, platelets noted to be 196. Blood culture neg. UA neg Please note, the patient also had an echocardiogram done during hospital course , which showed ejection fraction of 55% to 60%, akinesis of the apical inferior and apical septal myocardium, severe hypokinesis of the apical myocardium. The patient had an x-ray done, which showed cardiomegaly without evidence of pulmonary edema, possible pulmonary arterial hypertension, and obstructive lung disease. Medication list as discussed above. CONDITION AT TIME OF DISCHARGE: Stable. DISPOSITION: Home. INSTRUCTIONS: 1. The patient to follow up with her PCP on Sunday. 2. The patient to return back to the hospital if she has any worsening symptoms. 3. The patient to follow up with Cardiology next week. TIME SPENT: Total time spent on discharge is equal to 45 minutes. [id number]/CPS #: [id number] MTDD
== END 2019-04-19 10:49 | disposition home or self-care (01) ==
LOC: ED 22:01 → MEDTELE 04-18 04:19
PROVIDERS: ADMIT Internal Medicine; ATTEND Internal Medicine
DX: R65.10 Systemic inflammatory response syndrome (SIRS) of non-infectious origin without acute organ dysfunction (principal); B34.9 Viral infection, unspecified; R00.0 Tachycardia, unspecified; R00.2 Palpitations; M31.6 Other giant cell arteritis; I10 Essential (primary) hypertension; E78.5 Hyperlipidemia, unspecified; I25.10 Atherosclerotic heart disease of native coronary artery without angina pectoris; Z95.828 Presence of other vascular implants and grafts; Z95.5 Presence of coronary angioplasty implant and graft; Z79.82 Long term (current) use of aspirin; Z79.899 Other long term (current) drug therapy; K59.00 Constipation, unspecified
CPT/HCPCS: 36415; 71046; 80048; 80053; 81003; 82565; 83735; 84484; 84520; 85025; 85379; 85610; 85730; 86140; 87040; 93005; 93306; 96365; 96366; 96372; 96375; 99285; A9270-GY; G0378; J0780; J1644; J1650; J2405; J3475; J3490; J7512

== ENCOUNTER 2019-10-16 09:56 | Emergency (ER) | payer MEDICARE ==
--- OUTSIDE RECORDS SUMMARY | 2019-10-16 10:03 | XMS REPORT | Continuity of Care Document ---
:1950 External Reference #:[id number] Author Name Todd Sanderson, OD Address [address] [place] [address] Care Team Providers Name Role Phone Jim Ritchie MD - Rf Technician Care Team Information Ground Layer Problems Active Problems Provider Date Primary open-angle glaucoma, indeterminate Luis Wallace M.D. Onset: 2015 stage Giant cell arteritis Luis Wallace M.D. Onset: 03/23/2016 Nuclear senile cataract Luis Wallace M.D. 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 Social History Type Date Description Comments Sex Unknown ETOH Use Denies alcohol use Tobacco Use Start: Unknown Patient has never smoked Smoking Status Reviewed: 08/21/19 Patient has never smoked Allergies, Adverse Reactions, Alerts Active Allergies Reaction Severity Comments Date Peanuts 07/14/2008 Medications Active Medications SIG Qnty Indications Ordering Provider Date Latanoprost 1 drops both 7.5ml Todd Sanderson, OD 12/30/2018 0.005% eyes every Solution night Mometasone Furoate apply three 45units Jim Ritchie, 11/02/2014 0.1% times a day as MD Cream needed Folic Acid 1 po qd 100tabs Jim Ritchie, 05/18/2014 1mg Tablets Celexa 1 by mouth 90tabs Jim Ritchie, 09/01/2010 20mg Tablets every day MD Clonazepam 1 by mouth 60tabs Jim Ritchie, 08/22/2010 0.5mg Tablets twice a day Nadolol take 2 tablet 90tabs Jim Ritchei, 06/14/2005 20mg Tablets by mouth once MD daily Pantoprazole Sodium 1 by mouth bid Shallish, Jim, 40mg MD Tablets Prednisone Jim Ritchie, 12.5mg Tablets Crestor 1 by mouth Jim Ritchie, 10mg Tablets every day Alendronate Sodium take 1 tablet Unknown 70mg by mouth every Tablets week Aspir-81 once per day by Unknown 81mg Tablets DR mouth Immunizations Description No Information Available Vital Signs Date Vital Result Comment 08/21/2019 10:13am Intraocular Pressure Right Eye 17 mmHg Intraocular Pressure Left Eye 17 mmHg 05/21/2019 10:19am Intraocular Pressure Right Eye 16 mmHg Intraocular Pressure Left Eye 16 mmHg Results Description No Information Available Procedures Date Code Description Status 05/21/2019 99006 Eye Exam Est Intermediate Completed Medical Devices Description No Information Available Encounters Description No Information Available Assessments Date Code Description Provider 08/21/2019 H40.1132 Primary open-angle glaucoma, bilateral, Todd Sanderson, OD moderate stage 05/21/2019 H40.1132 Primary open-angle glaucoma, bilateral, Todd Sanderson, OD moderate stage Plan of Treatment 08/21/2019 - Todd Sanderson [id number] Primary open-angle glaucoma, bilateral, moderate stageFollow up:3 mos OCt nerve, sooenr PRN Functional Status Description No Information Available Mental Status Description No Information Available Referrals Description No Information Available
[2019-10-16 10:26] VITALS: BP 117/64
--- NOTE | 2019-10-16 11:53 | UC ---
Hand/Wrist HPI - HPI Summary HPI Summary: 69-year-old female presents with complaints of right hand and wrist pain. States on [place]ona Shahana she accidentally tripped over the threshold of the door of her house landing on an outstretched arm. Pain is located primarily over the thenar eminence and radial wrist. States pain worsens with lifting, movement, and if it is left in a dependent position. Face she has been taking Tylenol with improvement in the pain and that pain is better today than it has been the past couple of days. Denies bruising, swelling, numbness or tingling. - History Of Current Complaint Chief Complaint: UCUpperExtremity Stated Complaint: HAND INJURY Time Seen by Provider: 10/16/19 11:39 Hx Obtained From: Patient Pain Intensity: 5 - Allergies/Home Medications Allergies/Adverse Reactions: Allergies Allergy/AdvReac Type Severity Reaction Status Date / Time Iodinated Contrast Media Allergy Severe Low back Verified 10/16/19 10:20 [Iodinated Contrast- Oral Pain - and IV Dye] "Just felt like something was wrong" peanut Allergy Hives Verified 10/16/19 10:20 Home Medications: Home Medications Acetaminophen [Mapap] 1,000 mg PO ONCE PRN 10/16/19 [History Confirmed 10/16/19] PMH/Surg Hx/FS Hx/Imm Hx - Additional Past Medical History Additional PMH: Giant cell arteritis, osteoporsis Cardiovascular History: Cardiac Disease, Hypertension Psychological History: Anxiety, Depression - Surgical History Surgical History: Yes Surgery Procedure, Year, and Place: partial HYSTERECTOMY;. DOUBLE BYPASS-OK PER DR ARAMBULA. TONSILS - Family History Known Family History: Positive: Cardiac Disease - [place] (father), Hypertension - Social History Occupation: Retired Lives: With Family Alcohol Use: None Substance Use Type: None Smoking Status (MU): Never Smoked Tobacco Have You Smoked in the Last Year: No - Immunization History Most Recent Influenza Vaccination: Fall 2015 Most Recent Pneumonia Vaccination: cant recall year but has had in the past Hx Tetanus, Diphtheria Vaccination: Yes Vaccination Up to Date: Yes Review of Systems All Other Systems Reviewed And Are Negative: Yes Constitutional: Positive: Negative Skin: Negative: Bruising Respiratory: Positive: Negative Cardiovascular: Positive: Negative Gastrointestinal: Positive: Negative Genitourinary: Positive: Negative Motor: Negative: Weakness Neurovascular: Negative: Decreased Sensation Musculoskeletal: Positive: Other: - See HPI Neurological: Positive: Negative Is Patient Immunocompromised?: No Physical Exam - Summary Physical Exam Summary: GENERAL APPEARANCE: Well developed, well nourished, alert and cooperative, and appears to be in no acute distress. CARDIAC: Normal S1 and S2. No S3, S4 or murmurs. Rhythm is regular. There is no peripheral edema, cyanosis or pallor. Extremities are warm and well perfused. Capillary refill is less than 2 seconds. Peripheral pulses intact. LUNGS: Clear to auscultation without rales, rhonchi, wheezing or diminished breath sounds. ABDOMEN: Positive bowel sounds. Soft, nondistended, nontender. No guarding or rebound. No masses or hepatosplenomegally. MUSKULOSKELETAL: Normal muscular development. Normal gait. EXTREMITIES: Tenderness over the thenar eminence of the right hand without gross deformity, ecchymosis, or edema. Full ROM to all fingers and wrist. Circulation and sensation intact. SKIN: Skin normal color, texture and turgor with no lesions or eruptions. Triage Information Reviewed: Yes Vital Signs: Initial Vital Signs Temp 97.5 F 10/16/19 10:14 Pulse 83 10/16/19 10:14 Resp 18 10/16/19 10:14 BP 117/64 10/16/19 10:14 Pulse Ox 97 10/16/19 10:14 Vital Signs Reviewed: Yes Diagnostics - Radiology No standard instances Radiology Interpretation Completed By: Radiologist Summary of Radiographic Findings: Order Information: HAND - RIGHT MINIMUM 3 VIEWS. INDICATION: Right hand injury. TECHNIQUE: 4 views of the right hand were obtained. FINDINGS: The bones are in normal alignment. No fracture is seen. Joint spaces appear maintained. IMPRESSION: NO EVIDENCE FOR FRACTURE. Hand/Wrist Course/Dx - Course Course Of Treatment: 69-year-old female presents with complaints of right hand and wrist pain. States on Precious Shahana she accidentally tripped over the threshold of the door of her house landing on an outstretched arm. Pain is located primarily over the thenar eminence and radial wrist. States pain worsens with lifting, movement, and if it is left in a dependent position. Face she has been taking Tylenol with improvement in the pain and that pain is better today than it has been the past couple of days. Denies bruising, swelling, numbness or tingling. Afebrile. Vital signs stable. Patient had tenderness over the thenar eminence of the right hand without gross deformity, ecchymosis, or edema. Full ROM to all fingers and wrist. Circulation and sensation intact. X-ray showed no acute osseous injury. Reviewed results with the patient. Recommending conservative treatment for a right hand injury including OTC analgesics and RICE. She was placed in a cockup wrist splint by the RN. She is to follow-up with her primary care provider or orthopedic surgery in 7 days if symptoms are not improving. Anticipatory guidance and warning symptoms were reviewed with the patient. Verbalizes understanding of plan of care. - Differential Dx/Diagnosis Differential Diagnosis/HQI/PQRI: Contusion, Dislocation, Fracture, Sprain Provider Diagnosis: Injury of right hand Discharge ED - Sign-Out/Discharge Documenting (check all that apply): Patient Departure All imaging exams completed and their final reports reviewed: Yes - Discharge Plan Condition: Stable Disposition: HOME Patient Education Materials: Hand Sprain (ED) Referrals: Jim Ritchie MD [Primary Care Provider] - Liana Henry MD [Medical Doctor] - Additional Instructions: The x-ray performed in the clinic today showed no evidence of a fracture. Rest the hand as much as possible. Wear the splint that was applied in the clinic until pain free. You may remove to shower but should wear at all other times. Apply ice to the affected area for 15-20 minutes at least 4 times a day to help with the pain and swelling. Elevate the hand to help reduce swelling. Take acetaminophen (Tylenol) or ibuprofen (Advil, Motrin) according to directions as needed for pain. Follow up with your primary care provider or with orthopedic surgery in 7 days if symptoms do not improve. Call for appointment. Seek immediate medical attention if you have severe pain not managed with pain medication, you are unable to walk or bear any weight, develop numbness or tingling in the hand or fingers, or have any worsening of symptoms. - Billing Disposition and Condition Condition: STABLE Disposition: Home
== END 2019-10-16 12:19 | disposition home or self-care (01) ==
LOC: UCEAST 09:56
DX: S69.91XA Unspecified injury of right wrist, hand and finger(s), initial encounter (principal); Z91.010 Allergy to peanuts; Z91.041 Radiographic dye allergy status; W22.8XXA Striking against or struck by other objects, initial encounter; Y92.9 Unspecified place or not applicable
CPT/HCPCS: 99212; G0463

== ENCOUNTER 2019-11-24 09:50 | Emergency (ER) | payer MEDICARE ==
--- OUTSIDE RECORDS SUMMARY | 2019-11-24 10:15 | XMS REPORT | Continuity of Care Document ---
:1950 External Reference #:[id number] Author Name Agata Clark M.D. (transmitted by agent of provider Sylvei Feliciano) Address [facility] 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 Onset: 06/14/2017 Atherosclerotic heart disease of [place] coronary Agata Clark M.D. Onset: artery without angina pectoris Mixed hyperlipidemia Agata Clark M.D. Onset: 06/09/2016 Giant cell arteritis Agata Clark M.D. Onset: 06/09/2016 Peripheral vascular disease Agata Clark M.D. Onset: 06/09/2016 Chronic ischemic heart disease Agata Clark M.D. Onset: 10/11/2015 Toxic myopathy Agata Clark M.D. Onset: 10/11/2015 Pure hyperglyceridemia Agata Clark M.D. Onset: 10/11/2015 Chest pain Agata Clark M.D. Onset: 10/11/2015 Arteriosclerosis of coronary artery bypass graft BUDDY Elias Onset: 2014 Hyperlipidemia Agata Clark M.D. Onset: 06/23/2015 Essential hypertension Agata Clark M.D. 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 Onset: 06/23/2015 Arteriosclerosis of autologous vein coronary Agata Clark M.D. Onset: 2014 artery bypass graft Social History Type Date Description Comments Sex Unknown ETOH Use Denies alcohol use Tobacco Use Start: Unknown Patient has never smoked Recreational Drug Use Denies Drug Use Smoking Status Reviewed: 11/07/19 Patient has never smoked Exercise Type/Frequency Exercises sporadically not been walking lately Allergies, Adverse Reactions, Alerts Active Allergies Reaction Severity Comments Date IV Contrast Dye, N/V 1978 Cath 06/09/2014 Peanuts Urticaria Moderate 06/23/2015 Pravastatin myalgia 11/05/2015 Medications Active Medications SIG Qnty Indications Ordering Provider Date Crestor /2 by mouth 14tabs G72.0 Agata Clark M.D. 10/20/2019 5mg Tablets every week Nadolol 1 by mouth every 90tabs Agata Clark M.D. 20mg Tablets day Aspirin 1 by mouth every Unknown 81mg Tablets day Clonazepam 1tablet bid 60tabs Unknown 0.5mg Tablets Folic Acid 1 by mouth every 30tabs Unknown 1mg Tablets day Citalopram 1 po qd Unknown 20mg Calcium + D3 1 by mouth daily Unknown [id number] Tablets Tylenol Extra as needed Unknown Strength Tablets Latanoprost both eyes every Unknown 0.005% night Solution Prednisone 1 po qd Unknown 5mg Tablets Immunizations Description No Information Available Vital Signs Date Vital Result Comment 11/07/2019 1:56pm Height 66 inches 5'6" Weight 147.00 lb with shoes on Heart Rate 85 /min BP Systolic Sitting 104 mmHg LA BP Diastolic Sitting 72 mmHg LA BP Systolic Standing 102 mmHg LA BP Diastolic Standing 70 mmHg LA BMI (Body Mass Index) 23.7 kg/m2 Ejection Fraction 55-60% Echo 04/18/19 07/14/2019 1:22pm Height 66 inches 5'6" Weight 147.00 lb with shoes Heart Rate 78 /min BP Systolic Sitting 102 mmHg lue reg cuff BP Diastolic Sitting 70 mmHg lue reg cuff BP Systolic Standing 110 mmHg lue reg cuff BP Diastolic Standing 70 mmHg lue reg cuff Respiratory Rate 14 /min BMI (Body Mass Index) 23.7 kg/m2 Ejection Fraction 55-60% lue reg cuff Results Description No Information Available Procedures Date Code Description Status 11/07/2019 12060 EKG Tracing & Interpretation Completed 09/01/2013 664252301 Bone Mineral Density Test Completed 09/01/2013 12001300 Mammogram Completed Medical Devices Description No Information Available Encounters Type Date Location Provider Dx Diagnosis Office Visit 11/07/2019 [facility] Agata Clark, I25.810 Atherosclerosis of 2:40p Of [place] Castaneda CABG w/o angina pectoris I25.5 Ischemic cardiomyopathy I73.9 Peripheral vascular disease, unspecified M31.6 Other giant cell arteritis Office Visit 07/14/2019 1:30p [facility] Agata Clark I25.10 Athscl heart Of [place] Castaneda disease of [place] coronary artery w/o ang pctrs I42.9 Cardiomyopathy, unspecified I73.9 Peripheral vascular disease, unspecified M31.5 Giant cell arteritis with polymyalgia rheumatica E78.00 Pure hypercholesterolemia, unspecified Assessments Date Code Description Provider 11/07/2019 I25.810 Atherosclerosis of coronary artery bypass Agata Clark M.D. graft(s) without angina pectoris 11/07/2019 I25.5 Ischemic cardiomyopathy Agata Clark M.D. 11/07/2019 I73.9 Peripheral vascular disease, unspecified Agata Clark M.D. 11/07/2019 M31.6 Other giant cell arteritis Agata Clark M.D. 07/14/2019 I25.10 Atherosclerotic heart disease of [place] Agata Clark M.D. coronary artery without angina pectoris 07/14/2019 I42.9 Cardiomyopathy, unspecified Agata Clark M.D. 07/14/2019 I73.9 Peripheral vascular disease, unspecified Agata Clark M.D. 07/14/2019 M31.5 Giant cell arteritis with polymyalgia Agata Clark M.D. rheumatica 07/14/2019 E78.00 Pure hypercholesterolemia, unspecified Agata Clark M.D. Plan of Treatment Future Appointment(s):11/13/2019 9:00 am - [facility]07[facility]2019 - Agata Clark M.D.I25.810 Atherosclerosis of coronary artery bypass graft(s) without angina pectorisComments:ECG is stable.Follow up:Provide pt with information on VascepaRecommendations:Stay on low dose Crestor for now. Call if leg pain/muscle aches a problem again. In answer to your question, fish oil beneficial in people with elevated triglycerides.I25.5 Ischemic cardiomyopathyNew Orders:Echocardiogram, Ordered: 11/07/19Comments:EF normal 2019Can update echo now that off losartan.Follow up: We will call with echo results. OV 6 months with ECGI73.9 Peripheral vascular disease, unspecifiedComments:Intracranial stenotic thfsjwF18.6 Other giant cell arteritisComments:Dr Reyes. Functional Status Description No Information Available Mental Status Description No Information Available Referrals Description No Information Available
--- OUTSIDE RECORDS SUMMARY | 2019-11-24 10:15 | XMS REPORT | Summary of Care ---
:1950 Author Organization [facility] Address [address] [place] [id number] Care Team Providers Name Role Phone Jim Ritchie MD Primary Care Provider Reason for Referral Medication Prior Authorization (Routine) Status Reason Specialty Diagnoses / Referred By Contact Referred To Procedures Contact Authorized Diagnoses Giant cell arteritis Nonintractable episodic headache, unspecified headache type José Luis Reyes MD [address] [place] [id number] Email: [email or web address] Reason for Visit Reason Comments Follow-up giant cell arteritis Encounter Details Date Type Department Care Team Description 10/27/2019 Office Visit [facility] Rheumatology José Luis Reyes MD Giant cell arteritis (Primary Dx); at [address] High risk medication use; [facility] Chronic midline low back pain without sciatica; [address] [place] [phone] Pain of both hip joints; Branch [phone] Nonintractable episodic headache, unspecified headache type [address] Floor, [address] [place] [phone] Allergies Active Allergy Reactions Severity Noted Date Comments Iodinated Diagnostic Diarrhea, Other High 12/26/2015 Lower back pain Agents (See Comments) Patient states she had a cardiac catheterization in past without problems Peanut Oil Hives 12/26/2015 documented as of this encounter (statuses as of 11/03/2019) Medications Medication Sig Dispensed Refills Start Date End Date Status folic acid Take 1 mg by 0 Active (FOLVITE) 1 MG mouth daily. tablet citalopram (CELEXA) Take 20 mg by 0 Active 20 MG tablet mouth daily. losartan (COZAAR) Take 25 mg by 0 Active 25 MG tablet mouth nightly. calcium-vitamin D Take 1 tablet 0 Active (OSCAL-500) 500-200 by mouth MG-UNIT per tablet daily. clonazePAM Take 0.5 mg 0 01/14/2016 Active (KLONOPIN) 0.5 MG by mouth Two tablet Times Daily aspirin 81 MG Take 81 mg by 0 Active tablet mouth daily. latanoprost Place 1 drop 0 Active (XALATAN) 0.005 % into both ophthalmic solution eyes nightly. nadolol (CORGARD) Take 20 mg by 0 10/09/2016 Active 20 MG tablet mouth every morning rosuvastatin Take 2.5 mg 0 10/31/2016 Active (CRESTOR) 5 MG by mouth once tablet a week risedronate Take 150 mg 0 Active (ACTONEL) 150 MG by mouth tablet every 30 (thirty) days with a full glass of water, on empty stomach, do not take anything else by mouth or lie down for next 30 minutes. predniSONE 5 MG Take 1 tablet 30 tablet 5 10/27/2019 Active Oral Tablet by mouth (DELTASONE)Indicati daily ons: Giant cell arteritis, Nonintractable episodic headache, unspecified headache type predniSONE Take 2 60 tablet 5 03/11/2019 Discontinued (DELTASONE) 5 MG tablets by 0 (Reorder) tabletIndications: mouth daily Giant cell arteritis, Nonintractable episodic headache, unspecified headache type documented as of this encounter (statuses as of 11/03/2019) Active Problems Problem Noted Date Chronic midline low back pain without sciatica 03/15/2018 Pain of both hip joints 03/15/2018 High risk medication use 05/17/2016 Giant cell arteritis 01/14/2016 UTI (urinary tract infection) 12/27/2015 Intracranial vascular stenosis 12/27/2015 CAD (coronary artery disease) 12/27/2015 Lipid disorder 12/27/2015 Headache 12/26/2015 documented as of this encounter (statuses as of 11/03/2019) Social History Tobacco Use Types Packs/Day Years Used Date Never Smoker Smokeless Tobacco: Never Used Comments: smoked "a little in college" Alcohol Use Drinks/Week oz/Week Comments Not Asked 0 Standard drinks or equivalent 0.0 rarely Sex Assigned at Date Recorded Not on file Job Start Date Occupation Industry Not on file Not on file Not on file Travel History Travel Start Travel End No recent travel history available. documented as of this encounter Last Filed Vital Signs Vital Sign Reading Time Taken Comments Blood Pressure 107/68 10/27/2019 10:36 AM EST Pulse 80 10/27/2019 10:36 AM EST Temperature 36.6 10/27/2019 10:36 AM EST C (97.8 F) Respiratory Rate 16 10/27/2019 10:36 AM EST Oxygen Saturation - - Inhaled Oxygen Concentration - - Weight 65.3 kg (144 lb) 10/27/2019 10:36 AM EST Height 165.1 cm (5' 5") 10/27/2019 10:36 AM EST Body Mass Index 23.96 10/27/2019 10:36 AM EST documented in this encounter Progress Notes José Luis Reyes MD - 10/27/2019 10:15 AM EST Progress Note Meaghan Luna is a 69 y.o. female Chief Complaint Patient presents with Follow-up Giant cell arteritis Subjective: The patient returns today for a followup visit. She has history of giant cell arteritis. Currently, she is on prednisone 5 mg a day. She has been doing fairly well. She has anxiety. She had a few episodes of headaches in the past; however, sincelast visit, she has had no temporal headaches or jaw claudication. She denies any visual changes. No recent fall or infection. No cough, cold, flu, fever. She is worried about stroke or other unwanted events. She has no shortness of breath or wheezing. No pleuritic chest pain. Denies any focal weakness. No headaches. Her sleep is poor. She was accompanied with her who is very supportive. She has intermittent pain in her both hips. Her energy is variable. She has good days and bad days. She has chronic back pain. She denies any radiation of the pain. Allergies Allergen Reactions Contrast Dye [Iodinated Diagnostic Agents] Diarrhea and Other (See Comments) Lower back pain Patient states she had a cardiac catheterization in past without problems Peanuts [Peanut Oil] Hives Past Medical History: Diagnosis Date Anxiety Aortic aneurysm Blood transfusion without reported diagnosis Coronary artery disease Giant cell arteritis 12/2015 Hyperlipidemia Hypertension Myocardial infarction PVD (peripheral vascular disease) Past Surgical History: Procedure Laterality Date CARDIAC SURGERY CORONARY ARTERY BYPASS GRAFT 1977 PARTIAL HYSTERECTOMY WA TEMPORAL ARTERY LIGATN OR BX Right 12/30/2015 Procedure: LIGATION/BX, TEMPORAL ARTERY; Surgeon: Rohan Gloria MD; Location: [facility]; Service: General; Laterality: Right; TONSILLECTOMY TUBAL LIGATION Family History Problem Relation Age of Onset Hyperlipidemia Mother Heart disease Mother Cancer Father Cancer Brother Social History Tobacco Use Smoking status: Never Smoker Smokeless tobacco: Never Used Tobacco comment: smoked "a little in college" Substance Use Topics Alcohol use: Not on file Comment: rarely Drug use: No Outpatient Encounter Medications as of 10/27/2019 Medication Sig Dispense Refill aspirin 81 MG tablet Take 81 mg by mouth daily. calcium-vitamin D (OSCAL-500) 500-200 MG-UNIT per tablet Take 1 tablet by mouth daily. citalopram (CELEXA) 20 MG tablet Take 20 mg by mouth daily. clonazePAM (KLONOPIN) 0.5 MG tablet Take 0.5 mg by mouth Two Times Daily folic acid (FOLVITE) 1 MG tablet Take 1 mg by mouth daily. latanoprost (XALATAN) 0.005 % ophthalmic solution Place 1 drop into both eyes nightly. nadolol (CORGARD) 20 MG tablet Take 20 mg by mouth every morning predniSONE (DELTASONE) 5 MG tablet Take 2 tablets by mouth daily ( Patient taking differently:Take 5 mg by mouth daily ) 60 tablet 5 risedronate (ACTONEL) 150 MG tablet Take 150 mg by mouth every 30 (thirty ) days with a full glass of water, on empty stomach, do not take anything else by mouth or lie down for next 30 minutes. rosuvastatin (CRESTOR) 5 MG tablet Take 2.5 mg by mouth once a week losartan (COZAAR) 25 MG tablet Take 25 mg by mouth nightly. No facility-administered encounter medications on file as of 10/27/2019. Patient Active Problem List Diagnosis Headache UTI (urinary tract infection) Intracranial vascular stenosis CAD (coronary artery disease) Lipid disorder Giant cell arteritis High risk medication use Chronic midline low back pain without sciatica Pain of both hip joints ROS Constitutional: Positive for activity change and no unexpected weight change . Negative for fever, chills, diaphoresis, appetite change and fatigue. HENT: Positive for neck pain and neck stiffness. Negative for hearing loss, ear pain, nosebleeds, congestion, sore throat, facial swelling, rhinorrhea, sneezing , drooling, mouth sores, trouble swallowing, dental problem, voice change, postnasal drip, sinus pressure, tinnitus and ear discharge. Eyes: Negative for photophobia, pain, discharge, redness, itching and visual disturbance. Respiratory: Negative for apnea, cough, choking, chest tightness, shortness of breath, wheezing and stridor. Cardiovascular: negative for palpitations. Negative for chest pain and leg swelling. Gastrointestinal: Negative for nausea, vomiting, abdominal pain, diarrhea, constipation, blood in stool, abdominal distention, anal bleeding and rectal pain. Genitourinary: Negative for urgency and decreased urine volume. Negative for dysuria, frequency, hematuria, flank pain, enuresis, difficulty urinating and genital sores. Musculoskeletal: Positive for myalgias, back pain, joint swelling, arthralgias and gait problem. Skin: Negative for color change, pallor, rash and wound. Neurological: Negative for dizziness, tremors, seizures, syncope, facial asymmetry, speech difficulty, weakness, light-headedness, numbness and headaches. Hematological: Negative for adenopathy. Does not bruise/bleed easily. Psychiatric/Behavioral: Negative for suicidal ideas, hallucinations, behavioral problems, confusion,, self-injury, dysphoric mood, decreased concentration and agitation. The patient is nervous/anxiousand is not hyperactive. Positive for sleep disturbance. All other systems reviewed and are negative Objective: VITAL SIGNS: Vitals: 10/27/19 1036 BP: 107/68 Pulse: 80 Resp: 16 Temp: 36.6 C (97.8 F) Physical Exam Nursing note and vitals reviewed. Constitutional: the patient is oriented to person, place, and time. Vital signs are normal. The patient appears well-developed and well-nourished. No distress. HENT: Head: Normocephalic and atraumatic. Right Ear: External ear normal. Left Ear: External ear normal. Nose: Nose normal. Mouth/Throat: Oropharynx is clear and moist. Eyes: Conjunctivae and EOM are normal. Pupils are equal, round, and reactive to light. Right eye exhibits no discharge. Left eye exhibits no discharge. No scleral icterus. Neck: Normal range of motion. Neck supple. No JVD present. No tracheal deviation present. No thyromegaly present. Cardiovascular: Normal rate, regular rhythm, normal heart sounds and intact distal pulses. Exam reveals no gallop and no friction rub. No murmur heard. Pulmonary/Chest: Effort normal and breath sounds normal. No stridor. No respiratory distress. The patient has no wheezes. Has no rales. Exhibits no tenderness. Abdominal: Soft. Bowel sounds are normal. The patient exhibits no distension and no mass. There is no tenderness. There is no rebound and no guarding. Musculoskeletal: I did not appreciate any active synovitis in peripheral joints. She has good temporal pulses. No temporal tenderness. Right shoulder: Normal. The patient exhibits normal range of motion. Left shoulder: Normal. Right elbow: Normal. Left elbow: Normal. Right wrist: Normal. Left wrist: Normal. Left hip: Normal. Right ankle: Normal. Left ankle: Normal. Cervical back: Normal. Thoracic back: Normal. Lumbar back: Normal. Right upper arm: Normal. Left upper arm: Normal. Right forearm: Normal. Left forearm: Normal. Right upper leg: Normal. Left upper leg: Normal. Right lower leg: Normal. Left lower leg: Normal. Right foot: Normal. Left foot: swollen Lymphadenopathy: The patient has no cervical adenopathy. Neurological: The patient is alert and oriented to person, place, and time. Has normal reflexes. Nocranial nerve deficit. Exhibits normal muscle tone. Coordination normal. Skin: Skin is warm. No rash noted. The patient is not diaphoretic. No erythema. No pallor. Psychiatric: The patient has a normal mood and affect. Behavior is normal. Judgment and thought content normal. ASSESSMENT: Meaghan was seen today for follow-up. Diagnoses and all orders for this visit: Giant cell arteritis - CBC and Differential; Future - Comprehensive Metabolic Panel; Future - Sedimentation rate, automated; Future - High sensitivity CRP; Future - CBC and Differential; Future - Comprehensive Metabolic Panel; Future - Sedimentation rate, automated; Future - High sensitivity CRP; Future - predniSONE 5 MG Oral Tablet (DELTASONE); Take 1 tablet by mouth daily - CBC and Differential - Comprehensive Metabolic Panel - Sedimentation rate, automated - High sensitivity CRP - predniSONE 5 MG Oral Tablet (DELTASONE); Take 1 tablet by mouth daily High risk - medication use - CBC and Differential; Future - Comprehensive Metabolic Panel; Future - Sedimentation rate, automated; Future - High sensitivity CRP; Future Chronic midline low back pain without sciatica Pain of both hip joints Nonintractable episodic headache, unspecified headache type 1. Giant cell arteritis, stable, clinically on low-dose prednisone. 2. Lower back pain without sciatica, stable. 3. Bilateral hip pain, most likely degenerative in nature, does not sound like osteonecrosis. PLAN: I ordered CBC, CMP, sed rate, and CRP today. I also renewed her prednisone 5 mg daily. I told her to call next week to go over the labs. At that time, I will discuss further plan with her. She was instructed to call if she develops any change in her vision, temporal headaches, or jaw claudication. She understands the plan. Followup visit in 3 months. Non medication recommendations: 1. Daily exercise: Low impact aerobic or water exercises as tolerated. Regular exercises may help reduce the pain, improve circulation to the tight muscles, prevent de-coditioning, maintain range of motion and enhance better sleep. Avoid high impact and lot of weight bearing exercises. 2. Sleep hygiene: -Early to bed at night, preferably at the same time. -Avoid sweets, caffenated beverages in the afternoon. -Do not exercise late at night and take nap during the day. 3. Dietary instructions: -Try to eat healthy: low carbohydrate and low sugar -Avoid high sugar containing food, greasy and high fat food, large meals and late night snacks. Results for orders placed or performed in visit on 10/27/19 CBC and Differential Result Value Ref Range White Blood Cell 5.6 4 - 10 10*3/uL Red Blood Cell 4.60 4.1 - 5.3 10*6/uL Hemoglobin 14.7 11.5 - 15.5 g/dL Hematocrit 44.4 36 - 45 % Mean Cell Volume 96.7 (H) 80 - 96 fL Mean Cell Hemoglobin 32.0 27 - 33 pg Mean Cell Hgb Conc 33.1 32.0 - 36.0 g/dL Red Cell Dist Width 13.3 11.5 - 14.5 % Platelet Count 205 150 - 400 10*3/uL Differential Type Automated Diff Neutrophil 79 % Lymphocyte 16 % Monocyte 3 % Eosinophil 1 % Basophil 1 % Abs Neutrophil 4.42 1.8 - 7.0 10*3/uL Abs Lymphocyte 0.88 (L) 1.2 - 4.0 10*3/uL Abs Monocyte 0.19 0 - 0.8 10*3/uL Abs Eosinophil 0.03 0 - 0.5 10*3/uL Abs Basophil 0.05 0 - 0.2 10*3/uL Nucleated Red Blood Cells 0 0 - 0 /100 Comprehensive Metabolic Panel Result Value Ref Range Albumin 4.6 3.5 - 5.2 g/dL Bilirubin, Total 0.6 <1.2 mg/dL Calcium 9.6 8.8 - 10.2 mg/dL Chloride 101 98 - 107 mmol/L Creatinine 0.59 0.50 - 0.90 mg/dL Glucose 93 70 - 140 mg/dL Alkaline Phosphatase 60 35 - 104 U/L Potassium 5.1 3.4 - 5.1 mmol/L Total Protein 7.4 6.4 - 8.3 g/dL Sodium 139 136 - 145 mmol/L AST/SGO 17 <32 U/L Blood Urea Nitrogen 16 8 - 23 mg/dL Osmolality, Brian 289 275 - 300 mosm/kg BUN/Cre Ratio 27 Bicarbonate 27 22 - 29 mmol/L ALT/SGP 14 <33 U/L Anion Gap 11 8 - 15 mmol/L A/G Ratio 1.6 GFR Non 2008 CDK-EPI >90 >60 mL/min/1.73m2 GFR 2008 CKD-EPI >90 >60 mL/min/1.73m2 Sedimentation rate, automated Result Value Ref Range Sed Rate - ESR 12 <30 mm/hr High sensitivity CRP Result Value Ref Range CRP Sensitive 1.5 <3.0 mg/L Results for orders placed or performed in visit on 06/23/19 High sensitivity CRP Result Value Ref Range CRP Sensitive 1.2 <3.0 mg/L Sedimentation rate, automated Result Value Ref Range Sed Rate - ESR 16 <30 mm/hr Comprehensive Metabolic Panel Result Value Ref Range Albumin 4.5 3.5 - 5.2 g/dL Bilirubin, Total 0.4 <1.2 mg/dL Calcium 9.6 8.8 - 10.2 mg/dL Chloride 100 98 - 107 mmol/L Creatinine 0.74 0.50 - 0.90 mg/dL Glucose 106 70 - 140 mg/dL Alkaline Phosphatase 71 35 - 104 U/L Potassium 4.6 3.4 - 5.1 mmol/L Total Protein 7.3 6.4 - 8.3 g/dL Sodium 139 136 - 145 mmol/L AST/SGO 20 <32 U/L Blood Urea Nitrogen 12 8 - 23 mg/dL Osmolality, Brian 288 275 - 300 mosm/kg BUN/Cre Ratio 16 Bicarbonate 29 22 - 29 mmol/L ALT/SGP 24 <33 U/L Anion Gap 10 8 - 15 mmol/L A/G Ratio 1.6 GFR Non 2008 CDK-EPI 85 >60 mL/min/1.73m2 GFR 2008 CKD-EPI >90 >60 mL/min/1.73m2 CBC and Differential Result Value Ref Range White Blood Cell 5.8 4 - 10 10*3/uL Red Blood Cell 4.44 4.1 - 5.3 10*6/uL Hemoglobin 14.2 11.5 - 15.5 g/dL Hematocrit 43.4 36 - 45 % Mean Cell Volume 97.7 (H) 80 - 96 fL Mean Cell Hemoglobin 32.0 27 - 33 pg Mean Cell Hgb Conc 32.7 32.0 - 36.0 g/dL Red Cell Dist Width 13.4 11.5 - 14.5 % Platelet Count 214 150 - 400 10*3/uL Differential Type Automated Diff Neutrophil 80 % Lymphocyte 14 % Monocyte 4 % Eosinophil 1 % Basophil 1 % Abs Neutrophil 4.73 1.8 - 7.0 10*3/uL Abs Lymphocyte 0.83 (L) 1.2 - 4.0 10*3/uL Abs Monocyte 0.20 0 - 0.8 10*3/uL Abs Eosinophil 0.03 0 - 0.5 10*3/uL Abs Basophil 0.05 0 - 0.2 10*3/uL Nucleated Red Blood Cells 0 0 - 0 /100 Labs are stable. Results for orders placed or performed in visit on 06/23/19 High sensitivity CRP Result Value Ref Range CRP Sensitive 1.2 <3.0 mg/L Sedimentation rate, automated Result Value Ref Range Sed Rate - ESR 16 <30 mm/hr Comprehensive Metabolic Panel Result Value Ref Range Albumin 4.5 3.5 - 5.2 g/dL Bilirubin, Total 0.4 <1.2 mg/dL Calcium 9.6 8.8 - 10.2 mg/dL Chloride 100 98 - 107 mmol/L Creatinine 0.74 0.50 - 0.90 mg/dL Glucose 106 70 - 140 mg/dL Alkaline Phosphatase 71 35 - 104 U/L Potassium 4.6 3.4 - 5.1 mmol/L Total Protein 7.3 6.4 - 8.3 g/dL Sodium 139 136 - 145 mmol/L AST/SGO 20 <32 U/L Blood Urea Nitrogen 12 8 - 23 mg/dL Osmolality, Brian 288 275 - 300 mosm/kg BUN/Cre Ratio 16 Bicarbonate 29 22 - 29 mmol/L ALT/SGP 24 <33 U/L Anion Gap 10 8 - 15 mmol/L A/G Ratio 1.6 GFR Non 2008 CDK-EPI 85 >60 mL/min/1.73m2 GFR 2008 CKD-EPI >90 >60 mL/min/1.73m2 CBC and Differential Result Value Ref Range White Blood Cell 5.8 4 - 10 10*3/uL Red Blood Cell 4.44 4.1 - 5.3 10*6/uL Hemoglobin 14.2 11.5 - 15.5 g/dL Hematocrit 43.4 36 - 45 % Mean Cell Volume 97.7 (H) 80 - 96 fL Mean Cell Hemoglobin 32.0 27 - 33 pg Mean Cell Hgb Conc 32.7 32.0 - 36.0 g/dL Red Cell Dist Width 13.4 11.5 - 14.5 % Platelet Count 214 150 - 400 10*3/uL Differential Type Automated Diff Neutrophil 80 % Lymphocyte 14 % Monocyte 4 % Eosinophil 1 % Basophil 1 % Abs Neutrophil 4.73 1.8 - 7.0 10*3/uL Abs Lymphocyte 0.83 (L) 1.2 - 4.0 10*3/uL Abs Monocyte 0.20 0 - 0.8 10*3/uL Abs Eosinophil 0.03 0 - 0.5 10*3/uL Abs Basophil 0.05 0 - 0.2 10*3/uL Nucleated Red Blood Cells 0 0 - 0 /100 Labs reviewed, stable. Labs stable. Study Result INDICATION: Groin pain. TECHNIQUE: Frontal and frog-leg views of the right and left hips were obtained. COMPARISON: None. FINDINGS/IMPRESSION: Right hip: No acute fracture or dislocation is identified. Bony alignment appears anatomic. Mild osteoarthritic changes are seen involving the right hip joint. Degenerative changes are also seen involving the right sacroiliac joint and the pubic symphysis. Left hip: No acute fracture or dislocation is identified. Bony alignment appears anatomic. Mild osteoarthritic changes are seen involving the left hip joint. Degenerative changes are seen involving theright sacroiliac joint as well as the pubic symphysis. A well-corticated ossicle is seen adjacent tothe left ischium which is likely chronic. If symptoms persist, consider MRI examination to help further evaluate. Study Result Examination: XR SPINE LUMBAR 2-3 [id number] [id number] Clinical Indication: Groin pain. Technique: AP and lateral images of the lumbar spine were submitted for interpretation. A total of 2 images were submitted for interpretation. Comparison: None at the time of this dictation. Findings/impression: For counting purposes, the lowest complete intervertebral disc space is designated L5-S1. Normal lumbar lordosis is maintained. There is suboptimal evaluation of transverse processes of lumbar vertebral bodies, due to presence of overlying bowel gas shadows. The visualized osseous structures are demineralized. Slight levocurvature of lumbar spine is noted. Mild disc space narrowing is noted at L1 -L2, L2-L3 and L5-S1. Mild multilevel degenerative changes involving the patellar noted, most pronounced at L5-S1. No acute fractures are identified. Xray reviewed. documented in this encounter Plan of Treatment Date Type Specialty Care Team Description 02/09/2020 Office Visit Rheumatology Jsoé Luis Reyes MD [address] [place] [address] [phone] Name Type Priority Associated Diagnoses Order Schedule CBC and Differential Lab Routine Giant cell arteritis 1 Occurrences starting High risk medication 10/27/2019 until use 04/26/2020 Comprehensive Metabolic Lab Routine Giant cell arteritis 1 Occurrences starting Panel High risk medication 10/27/2019 until use 04/26/2020 Sedimentation rate, Lab Routine Giant cell arteritis 1 Occurrences starting automated High risk medication 10/27/2019 until use 04/26/2020 High sensitivity CRP Lab Routine Giant cell arteritis 1 Occurrences starting High risk medication 10/27/2019 until use 04/26/2020 Health Maintenance Due Date Last Done Comments MMR Vaccines (1 of 1 - Standard 1951 series) Varicella Vaccines (1 of 2 - 1951 2-dose childhood series) DTaP,Tdap,and Td Vaccines (1 - 1957 Tdap) Breast Cancer Screening 2 years 2000 Colon Cancer Screening 10 yrs 2000 Zoster Vaccines (1 of 2) 2000 Osteoporosis Screening 2 yr 2015 Pneumococcal Vaccine: 65+ Years (1 2015 of 2 - PCV13) Influenza Vaccine 07/15/2019 Hepatitis C Screening (B. Completed 12/27/[phone]) HIB Vaccines Aged Out No longer eligible based on patient's age to complete this topic Hepatitis A Vaccines Aged Out No longer eligible based on patient's age to complete this topic Hepatitis B Vaccines Aged Out No longer eligible based on patient's age to complete this topic IPV Vaccines Aged Out No longer eligible based on patient's age to complete this topic Pneumococcal Vaccine: Pediatrics Aged Out No longer eligible based on (0 to 5 Years) and At-Risk patient's age to complete Patients (6 to 64 Years) this topic documented as of this encounter Implants Implanted Type Area Crystal Attacher Device Shelf Model / Identifier Expiration Serial / Date Lot Vas Sophia-6fr Ang[employer]al Vip Platform - [id number] Right: [place] 2015 [id number] / Implanted: Qty: 1 on 12/27/2015 by Fortunato Schmid [facility] at [facility] [employer], [employer] / [id number] documented as of this encounter Procedures Procedure Name Priority Date/Time Associated Comments Diagnosis SEDIMENTATION RATE, Routine 10/27/2019 11:47 Giant cell Results for this AUTOMATED AM EST arteritis procedure are in the results section. CBC AND DIFFERENTIAL Routine 10/27/2019 11:47 Giant cell Results for this AM EST arteritis procedure are in the results section. HIGH SENSITIVITY CRP Routine 10/27/2019 11:47 Giant cell Results for this AM EST arteritis procedure are in the results section. COMPREHENSIVE Routine 10/27/2019 11:47 Giant cell Results for this METABOLIC PANEL AM EST arteritis procedure are in the results section. documented in this encounter Results High sensitivity CRP (10/27/2019 11:47 AM EST) CRP Sensitive 1.5 <3.0 mg/L [facility] Comment: Clin Pathology (NOTE) [facility] (mg/L) CVD risk <1.0 low 1.0-3.0 average >3.0 high Specimen Plasma Performing Organization Address [facility] Phone Number [facility] [address] [place] [address] [phone] [facility] [address] [place] [id number] Pathology Sedimentation rate, automated (10/27/2019 11:47 AM EST) Sed Rate - ESR 12 <30 mm/hr [facility] Pathology Specimen EDTA Whole Blood Performing Organization Address [facility] [facility] Phone Number [facility] [address] [place] [address] [phone] [facility] [address] [place] [id number] Pathology Comprehensive Metabolic Panel (10/27/2019 11:47 AM EST) Albumin 4.6 3.5 - 5.2 g/dL [facility] Bilirubin, Total 0.6 <1.2 mg/dL [facility]ology Calcium 9.6 8.8 - 10.2 mg/dL [facility]ology Chloride 101 98 - 107 mmol/L [facility] Creatinine 0.59 0.50 - 0.90 [facility] mg/dL [facility] Glucose 93 70 - 140 mg/dL [facility] Alkaline Phosphatase 60 35 - 104 U/L [facility] Potassium 5.1 3.4 - 5.1 mmol/L [facility]ology Total Protein 7.4 6.4 - 8.3 g/dL [facility] Sodium 139 136 - 145 mmol/L [facility] AST/SGO 17 <32 U/L [facility] Blood Urea Nitrogen 16 8 - 23 mg/dL [facility]ology Osmolality, Brian 289 275 - 300 [facility] mosm/kg [facility] BUN/Cre Ratio 27 [facility]ology Bicarbonate 27 22 - 29 mmol/L [facility]ology ALT/SGP 14 <33 U/L [facility] Pathology Anion Gap 11 8 - 15 mmol/L [facility]ology A/G Ratio 1.6 [facility] Pathology GFR Non >90 >60 [facility] Bhutanese 2009 CDK-EPI mL/min/1.73m2 [facility] Pathology GFR >90 >60 [facility] 2009 CKD-EPI mL/min/1.73m2 [facility] Pathology Specimen Plasma Performing Organization Address City/State/Zipcode Phone Number [facility] [address] [place] [address] [facility] [address] [place] [address] Pathology CBC and Differential (10/27/2019 11:47 AM EST) White Blood Cell 5.6 4 - 10 [facility] 10*3/uL [facility] Red Blood Cell 4.60 4.1 - 5.3 [facility] 10*6/uL [facility] Hemoglobin 14.7 11.5 - 15.5 [facility] g/dL [facility] Hematocrit 44.4 36 - 45 % [facility] Pathology Mean Cell Volume 96.7 (H) 80 - 96 fL [facility] Pathology Mean Cell Hemoglobin 32.0 27 - 33 pg [facility] Pathology Mean Cell Hgb Conc 33.1 32.0 - 36.0 [facility] g/dL [facility] Pathology Red Cell Dist Width 13.3 11.5 - 14.5 % [facility] Pathology Platelet Count 205 150 - 400 [facility] 10*3/uL [facility] Differential Type Automated Diff [facility] Neutrophil 79 % [facility] Lymphocyte 16 % [facility]ology Monocyte 3 % [facility]ology Eosinophil 1 % [facility] Pathology Basophil 1 % [facility] Pathology Abs Neutrophil 4.42 1.8 - 7.0 [facility] 10*3/uL [facility] Pathology Abs Lymphocyte 0.88 (L) 1.2 - 4.0 [facility] 10*3/uL [facility]ology Abs Monocyte 0.19 0 - 0.8 [facility] 10*3/uL [facility] Abs Eosinophil 0.03 0 - 0.5 [facility] 10*3/uL [facility]ology Abs Basophil 0.05 0 - 0.2 [facility] 10*3/uL [facility] Pathology Nucleated Red Blood 0 0 - 0 [facility] Cells /100{WBCs} [facility] Pathology Specimen EDTA Whole Blood Performing Organization Address City/State/Zipcode Phone Number [facility] [address] [place] [address] [phone] [facility] [address] [place] [address] Pathology documented in this encounter Visit Diagnoses Diagnosis Giant cell arteritis - Primary High risk medication use Encounter for long-term (current) use of other medications Chronic midline low back pain without sciatica Pain of both hip joints Nonintractable episodic headache, unspecified headache type documented in this encounter
[2019-11-24 11:45] LABS: ABS Basophils 0.1 10^3/ul (0-0.2); ABS Lymphocytes 0.8 10^3/ul (1.0-4.8); ABS Monocytes 0.5 10^3/ul (0-0.8); ABS Neutrophils 9.3 10^3/ul (1.5-7.7); Eosinophil % 0.5 %; Hematocrit 44 % (35-47); Hemoglobin 14.7 g/dL (12.0-16.0); Lymphocyte % 7.2 %; Mean Corpuscular HGB Conc 33 g/dL (31-36); Mean Corpuscular Hemoglobin 32 pg (27-31); Mean Corpuscular Volume 96 fL (80-97); Mean Platelet Volume 11.2 fL (7.4-10.4); Platelet Count 234 10^3/uL (150-450); Red Blood Count 4.61 10^6 /uL (3.70-4.87); Red Cell Distribution Width 13 % (10-15); White Blood Count 10.6 10^3/uL (3.5-10.8)
[2019-11-24 12:03] LABS: Albumin 4.4 g/dL (3.2-5.2); Albumin/Globulin Ratio 1.5 (1-3); BUN/Creatinine Ratio 11.8 (8-20); Calcium 9.5 mg/dL (8.6-10.3); EGFR African American 91.3 (>60); EGFR Non-African American 75.5 (>60); Globulin 2.9 g/dL (2-4); Total Bilirubin 0.6 mg/dL (0.2-1.0); Total Protein 7.3 g/dL (6.4-8.9)
[2019-11-24 12:04] LABS: Troponin I 0.01 ng/mL (<0.03)
--- NOTE | 2019-11-24 12:27 | ED ---
Dizziness - HPI Summary HPI Summary: Patient is a 69 y/o F presenting to the ED for a chief complaint of dizziness, chills, diaphoresis, and anxiety for the last 2 days. Patient is present with her . Patient states her symptoms resolved 45 minutes after taking her medications. She reports anxiety due to recent stress with her son and grandson. She also believes she has a stomach bug because she has abdominal cramping, generalized weakness, decreased appetite, weight loss of 4 pounds, and diarrhea four days ago that has since resolved. Her son recently had similar symptoms. Patient denies any fever, erythema of eyes, sore throat, chest pain, shortness of breath, cough, nausea, vomiting, dysuria, hematuria, myalgia, edema, or rash. No aggravating or alleviating factors are noted. PMHx is significant for HTN and giant cell arteritis. Patient began taking Losartan on 11/19/19. Recently, she had an EKG and echocardiogram with unremarkable findings. Dr. Clark is her [employer]. - History Of Current Complaint Chief Complaint: EDDizziness Stated Complaint: FEELS FAINT IN THE AM PER PT Time Seen by Provider: 11/24/19 11:07 Hx Obtained From: Patient Onset/Duration: Still Present Severity Initially: Moderate Severity Currently: Moderate Character: Dizzy Aggravating Factor(s): Nothing Alleviating Factor(s): Nothing Associated Signs And Symptoms: Positive: Diarrhea - Resolved, Diaphoresis, Decreased Oral Intake - Appetite, Chills. Negative: Nausea, Vomiting, Chest Pain, SOB, Fever - Allergies/Home Medications Allergies/Adverse Reactions: Allergies Allergy/AdvReac Type Severity Reaction Status Date / Time Iodinated Contrast Media Allergy Severe Low back Verified 11/24/19 10:08 [Iodinated Contrast- Oral Pain - and IV Dye] "Just felt like something was wrong" peanut Allergy Hives Verified 11/24/19 10:08 Home Medications: Home Medications Rosuvastatin (NF) [Crestor (NF)] 2.5 mg PO WEEKLY 11/24/19 [History Confirmed ] PMH/Surg Hx/FS Hx/Imm Hx Previously Healthy: Yes Endocrine/Hematology History: Reports: Other Endocrine/Hematological Disorders - HLD Denies: Hx Diabetes, Hx Thyroid Disease Cardiovascular History: Reports: Hx Coronary Artery Disease, Hx Hypertension - not on meds, Hx Myocardial Infarction - with double bypass, Hx Peripheral Vascular Disease Denies: Hx Congestive Heart Failure, Hx Pacemaker/ICD Respiratory History: Denies: Hx Asthma, Hx Chronic Obstructive Pulmonary Disease (COPD) History: Denies: Hx Dialysis, Hx Renal Disease Musculoskeletal History: Denies: Hx Osteoporosis Sensory History: Reports: Hx Contacts or Glasses, Hx Glaucoma Denies: Hx Legally Blind, Hx Deafness, Hx Hearing Aid Opthamlomology History: Reports: Hx Contacts or Glasses, Hx Glaucoma Denies: Hx Legally Blind EENT History: Denies: Hx Deafness Neurological History: Reports: Other Neuro Impairments/Disorders - Giant Cell Arteritis Psychiatric History: Reports: Hx Anxiety Denies: Hx Depression, Hx Panic Disorder - Cancer History Hx Chemotherapy: No Hx Radiation Therapy: No - Surgical History Surgical History: Yes Surgery Procedure, Year, and Place: partial HYSTERECTOMY;. DOUBLE BYPASS-OK PER DR ARAMBULA. TONSILS Infectious Disease History: Yes Infectious Disease History: Reports: Hx Shingles Denies: Hx Clostridium Difficile, Hx Hepatitis, Hx Human Immunodeficiency Virus (HIV), Hx of Known/Suspected MRSA, Hx Tuberculosis, Traveled Outside the [place] in Last 30 Days - Family History Known Family History: Positive: Cardiac Disease - [place] (father), Hypertension - Social History Occupation: Retired Lives: With Family Alcohol Use: None Hx Substance Use: No Substance Use Type: Reports: None Hx Tobacco Use: No Smoking Status (MU): Never Smoked Tobacco Have You Smoked in the Last Year: No Review of Systems Positive: Chills, Skin Diaphoresis, Other - Positive weight loss of 4 pounds and decreased appetite. Negative: Fever Negative: Erythema Negative: Sore Throat Negative: Chest Pain Negative: Shortness Of Breath, Cough Positive: Abdominal Pain - Cramping, Diarrhea - Resolved. Negative: Vomiting, Nausea Negative: dysuria, hematuria Negative: Myalgia, Edema Negative: Rash Neurological: Other - Positive dizziness Positive: Weakness - Generalized All Other Systems Reviewed And Are Negative: Yes Physical Exam - Summary Physical Exam Summary: Constitutional: Well-developed, Well-nourished, Alert. (-) Distressed Skin: Warm, Dry HENT: Normocephalic; Atraumatic Eyes: Conjunctiva normal Neck: Musculoskeletal ROM normal neck. (-) JVD, (-) Stridor, (-) Tracheal deviation Cardio: Rhythm regular, rate normal, Heart sounds normal; Intact distal pulses; The pedal pulses are 2+ and symmetric. Radial pulses are 2+ and symmetric. (-) Murmur Pulmonary/Chest wall: Effort normal. (-) Respiratory distress, (-) Wheezes, (-) Rales Abd: Soft, (-) tenderness, (-) Distension, (-) Guarding, (-) Rebound Musculoskeletal: (-) Edema Lymph: (-) Cervical adenopathy Neuro: Alert, Oriented x3 Psych: Mood and affect Normal Triage Information Reviewed: Yes Vital Signs On Initial Exam: Initial Vitals Temp Pulse Resp BP Pulse Ox 98.8 F 86 16 138/91 97 11/24/19 10:05 11/24/19 10:05 11/24/19 10:05 11/24/19 10:11/24/19 10:05 Vital Signs Reviewed: Yes Procedures - Sedation Patient Received Moderate/Deep Sedation with Procedure: No Diagnostics - Vital Signs Vital Signs Temp Pulse Resp BP Pulse Ox 11/24/19 10:05 98.8 F 86 16 138/91 97 - Laboratory Lab Results: Lab Results 11/24/19 11/24/19 11/24/19 Range/Units 11:34 11:34 11:34 WBC 10.6 (3.5-10.8) 10^3/uL RBC 4.61 (3.70-4.87) 10^6 /uL Hgb 14.7 (12.0-16.0) g/dL Hct 44 (35-47) % MCV 96 (80-97) fL MCH 32 H (27-31) pg MCHC 33 (31-36) g/dL RDW 13 (10-15) % Plt Count 234 (150-450) 10^3/uL MPV 11.2 H (7.4-10.4) fL Neut % (Auto) 87.5 % Lymph % (Auto) 7.2 % Baxter % (Auto) 4.3 % Eos % (Auto) 0.5 % Baso % (Auto) 0.5 % Absolute Neuts (auto) 9.3 H (1.5-7.7) 10^3/ul Absolute Lymphs (auto) 0.8 L (1.0-4.8) 10^3/ul Absolute Monos (auto) 0.5 (0-0.8) 10^3/ul Absolute Eos (auto) 0.0 (0-0.6) 10^3/ul Absolute Basos (auto) 0.1 (0-0.2) 10^3/ul Absolute Nucleated RBC 0.0 10^3/ul Nucleated RBC % 0.0 Sodium 140 (135-145) mmol/L Potassium 5.0 (3.5-5.0) mmol/L Chloride 104 (101-111) mmol/L Carbon Dioxide 28 (22-32) mmol/L Anion Gap 8 (2-11) mmol/L BUN 9 (6-24) mg/dL Creatinine 0.76 (0.51-0.95) mg/dL Est GFR ( Amer) 91.3 (>60) Est GFR (Non-Af Amer) 75.5 (>60) BUN/Creatinine Ratio 11.8 (8-20) Glucose 118 H (70-100) mg/dL Lactic Acid 2.1 H* (0.5-2.0) mmol/L Calcium 9.5 (8.6-10.3) mg/dL Total Bilirubin 0.60 (0.2-1.0) mg/dL AST 20 (13-39) U/L ALT 17 (7-52) U/L Alkaline Phosphatase 68 (34-104) U/L Troponin I 0.01 (<0.03) ng/mL Total Protein 7.3 (6.4-8.9) g/dL Albumin 4.4 (3.2-5.2) g/dL Globulin 2.9 (2-4) g/dL Albumin/Globulin Ratio 1.5 (1-3) Result Diagrams: 11/24/19 11:34 20 11:34 Lab Statement: Any lab studies that have been ordered have been reviewed, and results considered in the medical decision making process. - Radiology Chest X-ray Radiology Interpretation Completed By: Radiologist Summary of Radiographic Findings: Chest X-ray IMPRESSION: No radiographic evidence for acute cardiopulmonary abnormality on this single AP view chest x- ray. Reviewed by Dr. Garcia. - EKG 11:35 Cardiac Rate: NL - 83 BPM EKG Rhythm: Sinus Rhythm ST Segment: Normal Ectopy: None Summary of EKG Findings: EKG at 11:35 shows normal sinus rhythm with 83 BPM, T wave inversions in V2-V5 which is new when compared to prior, no STEMI. Reviewed and interpreted by Dr. Garcia. Re-Evaluation - Re-Evaluation First Eval Re-Evaluation Time: 14:59 Change: Improved Comment: At 14:59, patient is feeling better. Dizzy Course/Dx - Course Course Of Treatment: Patient is a 69 y/o F presenting to the ED for a chief complaint of dizziness, chills, diaphoresis, and anxiety for the last 2 days. Patient is present with her . Patient states her symptoms resolved 45 minutes after taking her medications. She reports anxiety due to recent stress with her son and grandson. She also believes she has a stomach bug because she has abdominal cramping, generalized weakness, decreased appetite, weight loss of 4 pounds, and diarrhea four days ago that has since resolved. Her son recently had similar symptoms. Patient denies any fever, erythema of eyes, sore throat, chest pain, shortness of breath, cough, nausea, vomiting, dysuria, hematuria, myalgia, edema, or rash. PMHx is significant for HTN and giant cell arteritis. Patient began taking Losartan on 11/19/19. Recently, she had an EKG and echocardiogram with unremarkable findings. Dr. Clark is her [employer]. On exam, unremarkable findings. Laboratory abnormal findings: MCH 32, MPV 11.2, absolute neuts 9.3, absolute lymphs 0.8, glucose 118, lactic acid 2.1. EKG at 11:35 shows normal sinus rhythm with 83 BPM, T wave inversions in V2-V5 which is new when compared to prior, no STEMI. Chest X-ray IMPRESSION: No radiographic evidence for acute cardiopulmonary abnormality on this single AP view chest x-ray. At 14:59, patient is feeling better. Patient had recent diarrheal episodes with her son experiencing similar symptoms, dizziness, and near syncope after getting up off the toilet both times. Patient is prescribed anti-hypertensives, hypovolemia is suspected, no signs of [place], troponin is negative. Lactic acid likely related to dehydration. Patient will be discharged with a diagnosis of dehydration, diarrhea, and near syncope. Follow up with PCP in 2-3 days. - Diagnoses Provider Diagnoses: Dehydration, Diarrhea, Near syncope Discharge ED - Sign-Out/Discharge Documenting (check all that apply): Patient Departure - Discharge - Discharge Plan Condition: Stable Disposition: HOME Patient Education Materials: Dehydration (ED) Referrals: Jim Ritchie MD [Primary Care Provider] - Additional Instructions: RETURN TO THE EMERGENCY DEPARTMENT FOR CHANGING OR WORSENING SYMPTOMS. Follow up with your primary care provider in 2-3 days. - Attestation Statements Document Initiated by Scribe: Yes Documenting Scribe: Rosa Jaquez Provider For Whom Scribe is Documenting (Include Credential): Napoleon Garcia MD Scribe Attestation: Rosa Messer, scribed for Napoleon Garcia MD on 11/24/19 at 1503. Status of Scribe Document: Ready
[2019-11-24] MEDS ORDERED: NS 0.9% 1000 ML** 1,000 ML IV ONE (14:21)
[2019-11-24 15:32] VITALS: BP 107/67
== END 2019-11-24 15:31 | disposition home or self-care (01) ==
LOC: ED 09:50
DX: E86.0 Dehydration (principal); R19.7 Diarrhea, unspecified; R55 Syncope and collapse; I10 Essential (primary) hypertension; E78.5 Hyperlipidemia, unspecified; I25.10 Atherosclerotic heart disease of native coronary artery without angina pectoris; I25.2 Old myocardial infarction; I73.9 Peripheral vascular disease, unspecified; F41.9 Anxiety disorder, unspecified; Z95.1 Presence of aortocoronary bypass graft; Z90.711 Acquired absence of uterus with remaining cervical stump; Z79.899 Other long term (current) drug therapy; Z91.041 Radiographic dye allergy status
CPT/HCPCS: 36415; 71045; 80053; 83605; 84484; 85025; 93005; 96360; 99283

== ENCOUNTER 2022-01-01 09:16 | Inpatient (IN) ==
[2022-01-01 09:40] LABS: Hematocrit 46 % (35-47); Hemoglobin 15.4 g/dL (12.0-16.0); Mean Corpuscular HGB Conc 34 g/dL (31-36); Mean Corpuscular Hemoglobin 32 pg (27-31); Mean Corpuscular Volume 95 fL (80-97); Mean Platelet Volume 11.6 fL (7.4-10.4); Platelet Count 255 10^3/uL (150-450); Red Blood Count 4.78 10^6 /uL (3.70-4.87); Red Cell Distribution Width 13 % (10-15); White Blood Count 10.5 10^3/uL (3.5-10.8)
[2022-01-01 09:45] LABS: INR 0.99 (0.86-1.15)
[2022-01-01 09:46] LABS: ABS Basophils 0.1 10^3/ul (0-0.2); ABS Lymphocytes 1.3 10^3/ul (1.0-4.8); ABS Monocytes 0.6 10^3/ul (0-0.8); ABS Neutrophils 8.5 10^3/ul (1.5-7.7); Eosinophil % 0.2 %
[2022-01-01 10:13] LABS: Albumin 4.3 g/dL (3.2-5.2); Albumin/Globulin Ratio 1.6 (1-3); Globulin 2.7 g/dL (2-4); Potassium 4.1 mmol/L (3.5-5.0); Total Bilirubin 0.5 mg/dL (0.2-1.0); eGFR CKD-EPI 97.5 (>60)
[2022-01-01] MEDS ORDERED: Iohexol 350 (CONTRAST) 500 ML MDV IV ONE (10:56)
[2022-01-01 11:01] LABS: High Sensitivity Troponin 1 Hr 314 pg/mL (<15)
[2022-01-01] MEDS ORDERED: Heparin 5000 UNITS/ML 1 mL VIAL IV SCH (14:00)
[2022-01-01 15:09] LABS: ABS Basophils 0.1 10^3/ul (0-0.2); ABS Lymphocytes 0.9 10^3/ul (1.0-4.8); ABS Monocytes 0.7 10^3/ul (0-0.8); ABS Neutrophils 11.2 10^3/ul (1.5-7.7); Hematocrit 43 % (35-47); Hemoglobin 14.4 g/dL (12.0-16.0); Lymphocyte % 7.2 %; Mean Corpuscular HGB Conc 34 g/dL (31-36); Mean Corpuscular Hemoglobin 32 pg (27-31); Mean Corpuscular Volume 96 fL (80-97); Mean Platelet Volume 11.3 fL (7.4-10.4); Platelet Count 222 10^3/uL (150-450); Red Blood Count 4.45 10^6 /uL (3.70-4.87); Red Cell Distribution Width 13 % (10-15); White Blood Count 12.9 10^3/uL (3.5-10.8)
[2022-01-01] MEDS: Heparin DRIP 25,000 UNITS BAG 25,000 UNITS/500 ML BAG IV SCH (15:39)
[2022-01-01 15:50] LABS: Magnesium 2.1 mg/dL (1.9-2.7); eGFR CKD-EPI 96.3 (>60)
[2022-01-01] MEDS ORDERED: ZINC PO SCH (21:00)
[2022-01-01] MEDS: Calcium/Vitamin D TAB 250/125 TAB PO SCH (21:25)
[2022-01-02 05:30] LABS: ABS Lymphocytes 1.3 10^3/ul (1.0-4.8); ABS Neutrophils 8.8 10^3/ul (1.5-7.7); Eosinophil % 0.3 %; Hematocrit 46 % (35-47); Hemoglobin 15.6 g/dL (12.0-16.0); Lymphocyte % 11.3 %; Mean Corpuscular HGB Conc 34 g/dL (31-36); Mean Corpuscular Hemoglobin 32 pg (27-31); Mean Corpuscular Volume 96 fL (80-97); Mean Platelet Volume 11.4 fL (7.4-10.4); Platelet Count 207 10^3/uL (150-450); Red Blood Count 4.83 10^6 /uL (3.70-4.87); Red Cell Distribution Width 13 % (10-15); White Blood Count 11.1 10^3/uL (3.5-10.8)
[2022-01-02] MEDS ORDERED: Regadenoson 0.4 MG/5 ML SYRINGE ONE (14:08)
[2022-01-02] MEDS ORDERED: Aminophylline 25 MG/ML VIAL ONE (14:09)
[2022-01-02] MEDS: Pantoprazole VIAL 40 MG VIAL IV SCH (21:10)
[2022-01-02] MEDS: Calcium/Vitamin D TAB 250/125 TAB PO SCH (21:12)
[2022-01-02] MEDS ORDERED: NS 0.9% 1000 ml BAG 1,000 ML IV SCH (23:55)
[2022-01-03 06:01] LABS: ABS Lymphocytes 1.3 10^3/ul (1.0-4.8); ABS Monocytes 0.9 10^3/ul (0-0.8); ABS Neutrophils 6.3 10^3/ul (1.5-7.7); Eosinophil % 0.4 %; Hematocrit 46 % (35-47); Hemoglobin 15.5 g/dL (12.0-16.0); Lymphocyte % 15.7 %; Mean Corpuscular HGB Conc 34 g/dL (31-36); Mean Corpuscular Hemoglobin 32 pg (27-31); Mean Corpuscular Volume 96 fL (80-97); Mean Platelet Volume 11.8 fL (7.4-10.4); Platelet Count 204 10^3/uL (150-450); Red Blood Count 4.78 10^6 /uL (3.70-4.87); Red Cell Distribution Width 13 % (10-15); White Blood Count 8.5 10^3/uL (3.5-10.8)
[2022-01-03 06:25] LABS: eGFR CKD-EPI 95.1 (>60)
[2022-01-03] MEDS ORDERED: diPHENhydraMINE 25 mg TAB PO PRN (08:00)
[2022-01-03] MEDS: Pantoprazole VIAL 40 MG VIAL IV SCH (08:21)
[2022-01-03] MEDS: Heparin DRIP 25,000 UNITS BAG 25,000 UNITS/500 ML BAG IV SCH (11:04)
[2022-01-03] MEDS ORDERED: Midazolam 5 mg/5 ml VIAL 1 mg/ml 5 ml VIAL (5 mg) ONE (12:17)
[2022-01-03] MEDS ORDERED: Iohexol 350 (CONTRAST) 200 ML MDV IV ONE (12:17)
[2022-01-03] MEDS ORDERED: Heparin 2 UNITS/ML 1000 mls 2,000 ML IV ONE (12:17)
[2022-01-03] MEDS ORDERED: fentaNYL 100 mcg/2 ml 50 MCG/ML VIAL ONE (12:17)
[2022-01-03] MEDS ORDERED: Lidocaine 1% MPF 5 ML VIAL ONE (12:20)
[2022-01-03] MEDS ORDERED: Eptifibatide IV (Load dose) 2 MG/ML 10 ml VIAL IV ONE ×2 (17:00→17:10)
[2022-01-03 17:42] LABS: Rapid COVID-19 Molecular Undetected (Undetected)
[2022-01-03] MEDS ORDERED: Lorazepam PYXIS KEY PRN (18:54)
[2022-01-03] MEDS ORDERED: LORazepam 2 mg VIAL 1 ml IV PUSH ONE (18:54)
[2022-01-03] MEDS ORDERED: Lorazepam PYXIS KEY ONE (20:10)
[2022-01-04 02:34] VITALS: BP 127/59
== END 2022-01-03 20:20 | disposition short-term general hospital (02) | DRG 281 ==
LOC: ED 09:16 → EDHOLD 12:50 → SUATTDRO 12:50 → MEDTELE 14:31 → ICU 01-03 17:46
PROVIDERS: ADMIT Physician Assistant; ATTEND Internal Medicine